=== PATIENT | female | born 2005 | race Caucasian/White ===

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

== ENCOUNTER → 2023-01-03 18:04 | Outpatient (CLI) | payer OTHER, SELFPAY | PROVIDERS: Visit Provider Nurse Practitioner Obstetrics & Gynecology | DX: Z34.91 Encounter for supervision of normal pregnancy, unspecified, first trimester (principal); Z3A.08 8 weeks gestation of pregnancy ==

== ENCOUNTER → 2023-01-10 12:49 | Outpatient (CLI) | payer OTHER, SELFPAY ==
--- NOTE | 2023-01-10 12:52 | US_ITS ---
PROCEDURE: US OB <= 14 WEEKS FETUS CLINICAL INDICATION: for dates COMPARISON: No exams were available for comparison FINDINGS: Transvaginal sonographic images of the pelvis were obtained. From her last menstrual period she is 9weeks 5days. An intrauterine gestational sac is present with a pole with a crown-rump length of 2.83cm correlating to gestational age of 9weeks 5days. heart tones are present with an FHR of 186bpm. Yolk sac is noted. The yolk sac measures 5.5mm. The right ovary is seen and appears normal. It measures 2.9 cm x 1.7 cm x 2.5 cm. Within the ovary is a dominant follicle measuring 14 mm. The left ovary is seen and appears normal. It measures 2.4 cm x 1.9 cm x 1.8 cm. There are several small follicles. There is no fluid in the cul-de-sac. IMPRESSION: 1. Viable intrauterine gestation with heart rate activity. 2. Size and dates are congruent with her last menstrual period. 3. Estimated due date will remain 08/10/2023. Dictated by: Woodrow Simpson MD 01/10/2023 14:05 Woodrow Simpson MD in [place] 01/10/2023 14:05
== END ==
PROVIDERS: Visit Provider Nurse Practitioner Obstetrics & Gynecology
DX: Z34.91 Encounter for supervision of normal pregnancy, unspecified, first trimester (principal); Z3A.08 8 weeks gestation of pregnancy
CPT/HCPCS: 76801

== ENCOUNTER → 2023-01-31 14:50 | Outpatient (CLI) | payer OTHER, SELFPAY ==
[2023-01-31 15:35] LABS: Basophils % 0.3 % (0.1-2.0); Eosinophils # 0.2 K/mm3 (0.0-0.4); Eosinophils % 1.4 % (0.1-12.0); Hematocrit 37.9 % (37.0-47.0); Hemoglobin 12.3 g/dL (12.2-16.2); Lymphocytes # 1.7 K/mm3 (0.7-4.5); Lymphocytes % 16.4 % (10-50); Mean Corpuscular HGB Conc 32.5 g/dL (31.8-35.4); Mean Corpuscular Hemoglobin 25.6 pg (27.0-31.2); Mean Corpuscular Volume 78.7 fl (81-99); Mean Platelet Volume 8.6 fl (7.4-10.4); Monocytes # 0.4 K/mm3 (0.1-1.0); Monocytes % 3.8 % (1.7-9.3); Neutrophils # 8.2 K/mm3 (1.8-7.8); Neutrophils % 78.1 % (37.0-80.0); Platelet Count 268 K/mm3 (142-424); Red Blood Count 4.81 M/mm3 (4.20-5.40); Red Cell Distribution Width 14.6 % (11.5-17.5); White Blood Count 10.5 K/mm3 (4.5-13.0)
[2023-02-02 10:12] LABS: HSV 2 IgG, Type Spec <0.91 index (0.00-0.90); Rubella Antibodies, IgG 1.87 index (Immune >0.99)
[2023-02-07 11:43] LABS: HIV Screen 4th Generation wRfx Non Reactive; Hepatitis B Surface Antigen Negative; Hepatitis C Antibody Non Reactive; Rapid Plasma Reagin Ab Titer Non Reactive
== END ==
PROVIDERS: Visit Provider Nurse Practitioner Obstetrics & Gynecology
DX: Z34.91 Encounter for supervision of normal pregnancy, unspecified, first trimester (principal); Z3A.12 12 weeks gestation of pregnancy
CPT/HCPCS: 36415; 85025; 86593; 86695; 86703; 86762; 86790; 86850; 87340; 87380; G0432

== ENCOUNTER 2023-02-11 16:49 | Emergency (ER) | payer OTHER, SELFPAY ==
[2023-02-11 17:05] VITALS: BP 122/81; PULSE 121; RESP 19; TEMP 37.1; O2SAT 99; BMI 33.6
--- NOTE | 2023-02-11 17:08 | EXP.UTC ---
Discharge Plan Disposition Patient Disposition: Home, Self-Care Condition: Good Prescriptions Prescriptions: New aopradjkxgguetr-kwxmdaktz-IK [Bromfed DM] 2-30-10 mg/5 mL Syrup 5 ml PO Q6H PRN (Reason: Cough) Qty: 240 0RF ondansetron 4 mg Tablet,Disintegrating 4 mg PO Q8H PRN (Reason: Nausea) Qty: 12 0RF No Action Classic 28 mg iron- 800 mcg tablet 1 tab PO DAILY Referrals Follow up/Referrals: Provider,Referral, MD [Primary Care Provider] - See instructions Activity Restrictions/Add. Instructions Additional Instructions/Restrictions: Drink plenty of fluids. Take tylenol or ibuprofen for pain or fever. Take the medications as directed. Follow up with your regular doctor. GO TO THE ER FOR ANY WORSENING SYMPTOMS Clinical Impressions Clinical Impression: COVID-19 Stand Alone Forms Stand Alone Forms: Work/School Release Instructions Patient Instructions: Coronavirus Disease 2019, Preventing the Spread of Coronavirus Discharge Instructions Discharge ED Provider: Harrison Perry [facility] General Stated complaint: covid test fever chills sore throat Time Seen by Provider: 02/11/23 17:07 History of Present Illness Provider Complaint: She states that for the past 2 days she has had body aches, chills, scratchy sore throat, dry cough, and malaise. Her currently has covid-19. Related Data Home Medications Medication Instructions Recorded Confirmed vits no.126-ferrous fum 1 tab PO DAILY 01/03/23 01/31/23 28 mg iron-folic acid 800 mcg tablet (Classic ) Previous Rx's Medication Instructions Recorded gpecachybxmivak-rgwdoforckelcze-IL 5 ml PO Q6H PRN Cough #240 mL 02/11/23 2 mg-30 mg-10 mg/5 mL oral syrup (Bromfed DM) ondansetron 4 mg disintegrating 4 mg PO Q8H PRN Nausea #12 tabs 02/11/23 tablet Allergies Allergy/AdvReac Type Severity Reaction Status Date / Time No Known Allergies Allergy Verified 01/31/23 14:18 [facility] Disclaimer: The information contained in this section may have been updated after the patient was seen, as this information can be updated by other users. Medical History No active medical problems Surgical History No significant past surgical history Family History Other Family history non-contributory Social History Smoking Status: Former smoker alcohol intake: never substance use type: denies use current occupational status: employed and student Travel in the last 8 weeks: None ROS Obtained: Yes All systems reviewed & no additional complaints except as documented Constitutional Constitutional: Reports chills and Reports fever(s) Eyes Eyes: Denies eye discharge ENT Ears, Nose, Mouth, and Throat: Reports as per HPI Cardiovascular Cardiovascular: Denies chest pain Respiratory Respiratory: Denies chest congestion and Reports cough Gastrointestinal Gastrointestingal: Reports nausea; Denies abdominal pain, constipation, cramping, diarrhea or vomiting Musculoskeletal Musculoskeletal: Denies arthralgias Integumentary/Breasts Skin/Breast: Denies rash Neurologic Neurologic: Denies paresthesias Physical Exam General General appearance: alert and in no apparent distress Head Head exam: atraumatic, normocephalic and normal inspection Eye Eye exam: Present normal appearance, PERRL and EOMI ENT ENT exam: Present normal exam, normal oropharynx, mucous membranes moist, TM's normal bilaterally and normal external ear exam Neck Neck exam: Present normal inspection, full ROM and trachea midline; Absent meningismus or lymphadenopathy Chest Chest inspection: Present normal inspection and symmetric chest wall rise; Absent tenderness Respiratory Respiratory exam: Present normal lung
[2023-02-11 17:31] VITALS: BP 122/81; PULSE 121; RESP 19; TEMP 37.1; O2SAT 99
== END 2023-02-11 17:37 | disposition home or self-care (01) ==
PROVIDERS: Emergency Provider Nurse Practitioner Family
DX: U07.1 COVID-19 (principal); R50.9 Fever, unspecified; R53.81 Other malaise; Z87.891 Personal history of nicotine dependence
CPT/HCPCS: 99204; 99212; G0463

== ENCOUNTER → 2023-02-22 23:13 | Outpatient (CLI) | payer OTHER, SELFPAY | PROVIDERS: PCP Obstetrics & Gynecology; Visit Provider Obstetrics & Gynecology | DX: Z34.92 Encounter for supervision of normal pregnancy, unspecified, second trimester (principal); Z3A.15 15 weeks gestation of pregnancy | CPT/HCPCS: 87086 ==

== ENCOUNTER → 2023-04-08 14:02 | Outpatient (CLI) | payer OTHER, SELFPAY ==
--- NOTE | 2023-04-08 14:06 | US_ITS ---
PROCEDURE: US OB /MATERNAL DETAIL CLINICAL INDICATION: anatomy COMPARISON: US US OB <= 14 WEEKS FETUS from 01/10/2023 FINDINGS: Transabdominal sonographic images of the pelvis were obtained. From her established due date she is 22 weeks 2 days. Single viable intrauterine gestation. Breech position. Placenta: Anteriorplacenta grade 1 . There is an average amount of fluid. The cervix appears satisfactory. Closed and measuring 3.4 cm in length. There are couple of views where the cervix appears shorter. Complete survey performed and was unremarkable on the submitted images as in PACS. No discrete anomalies identified on survey imaging by technologist. Active fetus. Three-vessel cord with satisfactory umbilical cord insertion. 4- chamber heart noted. Aortic arch, three-vessel view, RVOT, LVOT appear normal. Survey of brain & ventricles Unremarkable. Cerebellum, cisterna magna, thalamus, choroid plexus appear normal. Face and neck survey unremarkable. Profile, nasion, lips and nose appeared normal. Diaphragm and chest views unremarkable. Abdomen: Both kidneys noted and unremarkable. Stomach and bladder noted and satisfactory. Spine: Survey of the spine satisfactory with no anomalies identified nor imaged. Cervical, thoracic and lower spine appear normal. Both arms and legs noted. Amniotic Fluid: Adequate. Measurements: Average ultrasound age 22weeks 4days. Estimated due date by ultrasound age 0208/08/2023. Estimated weight 508g BPD = 22weeks 5days HC = 22weeks 2days AC = 22weeks 6days FL = 22weeks 2days Heart Rate = 147bpm Cerebellum = 22weeks Humerus = 22weeks 5days HC/AC is 1.13 FL/BPD is 0.7 FL/AC is 0.21 IMPRESSION: 1. Viable fetus in the breech presentation with an anterior placenta grade 1. 2. The fluid is within normal limits. 3. Anatomical scan appears normal. 4. biometry is consistent with the dates. Dictated by: Woodrow Simpson MD 04/08/2023 19:39 Woodrow Simpson MD in [place] 04/08/2023 19:39
== END ==
PROVIDERS: PCP Nurse Practitioner Obstetrics & Gynecology; Visit Provider Nurse Practitioner Obstetrics & Gynecology
DX: Z34.92 Encounter for supervision of normal pregnancy, unspecified, second trimester (principal); Z3A.22 22 weeks gestation of pregnancy
CPT/HCPCS: 76811

== ENCOUNTER → 2023-05-14 10:49 | Outpatient (CLI) | payer OTHER, SELFPAY ==
[2023-05-14 11:06] LABS: Basophils % 0.2 % (0.1-2.0); Eosinophils # 0.1 K/mm3 (0.0-0.4); Hematocrit 32.4 % (37.0-47.0); Hemoglobin 10.9 g/dL (12.2-16.2); Lymphocytes # 1.6 K/mm3 (0.7-4.5); Lymphocytes % 14.5 % (10-50); Mean Corpuscular HGB Conc 33.5 g/dL (31.8-35.4); Mean Corpuscular Hemoglobin 26.1 pg (27.0-31.2); Monocytes # 0.4 K/mm3 (0.1-1.0); Monocytes % 3.3 % (1.7-9.3); Neutrophils # 9.1 K/mm3 (1.8-7.8); Platelet Count 314 K/mm3 (142-424); Red Blood Count 4.15 M/mm3 (4.20-5.40); Red Cell Distribution Width 15.4 % (11.5-17.5); White Blood Count 11.2 K/mm3 (4.5-13.0)
[2023-05-14 11:17] LABS: Glucose,Fasting 89 mg/dl (74-100)
[2023-05-14 13:21] LABS: Glucose 1 Hour 95 mg/dL (74-100)
== END ==
PROVIDERS: Visit Provider Nurse Practitioner Obstetrics & Gynecology
DX: Z34.02 Encounter for supervision of normal first pregnancy, second trimester (principal); Z3A.23 23 weeks gestation of pregnancy
CPT/HCPCS: 36415; 82951; 85025

== ENCOUNTER 2023-07-13 08:45 | Outpatient (CLI) | payer OTHER, SELFPAY ==
[2023-07-13 09:10] LABS: Total Volume,Urine 1750 mL (600-1600)
[2023-07-13 09:14] LABS: Basophils % 0.3 % (0.1-2.0); Eosinophils # 0.1 K/mm3 (0.0-0.4); Eosinophils % 1.1 % (0.1-12.0); Hematocrit 32.7 % (37.0-47.0); Lymphocytes % 16.5 % (10-50); Mean Corpuscular HGB Conc 33.7 g/dL (31.8-35.4); Mean Corpuscular Hemoglobin 25.5 pg (27.0-31.2); Mean Corpuscular Volume 75.7 fl (81-99); Mean Platelet Volume 8.8 fl (7.4-10.4); Monocytes # 0.4 K/mm3 (0.1-1.0); Monocytes % 3.3 % (1.7-9.3); Neutrophils # 9.7 K/mm3 (1.8-7.8); Neutrophils % 78.7 % (37.0-80.0); Platelet Count 288 K/mm3 (142-424); Red Blood Count 4.32 M/mm3 (4.20-5.40); White Blood Count 12.4 K/mm3 (4.5-13.0)
[2023-07-13 09:17] LABS: Total Protein 24 Hour,Urine 193 mg/24 hr (40-90)
[2023-07-13 09:43] LABS: Alanine Aminotransferase 36 U/L (12-78); Albumin Level 3.4 g/dl (3.5-5.0); Albumin/Globulin Ratio 1.2 (1.1-1.8); Alkaline Phosphatase 132 U/L (38-126); Anion Gap 13.3 mEq/L (5-15); Aspartate Amino Transferase 32 U/L (14-36); Bilirubin,Total 0.4 mg/dl (0.2-1.3); Blood Urea Nitrogen 12 mg/dl (7-17); Calcium 9.2 mg/dl (8.4-10.2); Carbon Dioxide 18 mmol/L (22.0-30.0); Chloride 106 mmol/L (98-107); Estimated Glomerular Filt Rate 127 ml/min (>60); GFR (African American) 154 ML/MIN (>60); Globulin 2.9 g/dL (1.3-3.2); Glucose 87 mg/dl (74-100); Potassium 4.3 mmoL/L (3.5-5.1); Sodium 133 mmol/L (136-145); Total Protein,Serum 6.3 g/dl (6.3-8.2); Uric Acid 6.3 mg/dl (2.5-6.2)
[2023-07-16 15:22] LABS: Albumin, U 47.8 % (.); Alpha-1-Globulin, U 6.2 % (.); Alpha-2-Globulin, U 11.8 % (.); Beta Globulin, U 21.6 % (.); Gamma Globulin, U 12.6 % (.); M-Spike, % Not Observed % (Not Observed); Prot,24hr calculated 236 mg/24 hr (30-150); Protein,Total,Urine 13.5 mg/dL (Not Estab.)
[2023-07-17 12:39] LABS: PDF: SCANNED IMAGE
== END 2023-07-13 23:59 ==
LOC: LAB 08:46
PROVIDERS: Visit Provider Obstetrics & Gynecology
DX: Z3A.35 35 weeks gestation of pregnancy (principal); O26.893 Other specified pregnancy related conditions, third trimester; R03.0 Elevated blood-pressure reading, without diagnosis of hypertension
CPT/HCPCS: 36415; 80053; 84155; 84156; 84166; 84550; 85025

== ENCOUNTER 2023-07-15 21:16 | Outpatient (CLI) | payer OTHER, SELFPAY | END 2023-07-15 23:59 | LOC: LAB.DROPOF 21:17 | PROVIDERS: PCP Obstetrics & Gynecology; Visit Provider Obstetrics & Gynecology | DX: Z34.93 Encounter for supervision of normal pregnancy, unspecified, third trimester (principal); Z3A.36 36 weeks gestation of pregnancy | CPT/HCPCS: 86403 ==

== ENCOUNTER 2023-07-22 16:24 | Inpatient (IN) | payer OTHER, SELFPAY ==
[2023-07-22] VITALS (24 sets, daily range): BP systolic 111–158; BP diastolic 67–107; PULSE 100–109; RESP 16–18; TEMP 36.4–36.9; O2SAT 98–100; BMI 39.4
[2023-07-22 15:08] LABS: Basophils % 0.3 % (0.1-2.0); Eosinophils # 0.1 K/mm3 (0.0-0.4); Eosinophils % 0.9 % (0.1-12.0); Hematocrit 32.1 % (37.0-47.0); Hemoglobin 10.9 g/dL (12.2-16.2); Lymphocytes # 1.8 K/mm3 (0.7-4.5); Lymphocytes % 15.1 % (10-50); Mean Corpuscular HGB Conc 33.9 g/dL (31.8-35.4); Mean Corpuscular Hemoglobin 26.4 pg (27.0-31.2); Mean Platelet Volume 8.9 fl (7.4-10.4); Monocytes # 0.3 K/mm3 (0.1-1.0); Monocytes % 2.9 % (1.7-9.3); Neutrophils # 9.5 K/mm3 (1.8-7.8); Neutrophils % 80.8 % (37.0-80.0); Platelet Count 292 K/mm3 (142-424); Red Blood Count 4.11 M/mm3 (4.20-5.40); Red Cell Distribution Width 16.7 % (11.5-17.5); White Blood Count 11.8 K/mm3 (4.5-13.0)
[2023-07-22 15:22] LABS: Alanine Aminotransferase 40 U/L (12-78); Aspartate Amino Transferase 33 U/L (14-36); Blood Urea Nitrogen 8 mg/dl (7-17); Calcium 9.2 mg/dl (8.4-10.2); Carbon Dioxide 19 mmol/L (22.0-30.0); Chloride 107 mmol/L (98-107); Creatinine Clearance Estimated 287 mL/min (50-200); Estimated Glomerular Filt Rate 157 ml/min (>60); GFR (African American) 190 ML/MIN (>60); Glucose 83 mg/dl (74-100); Sodium 134 mmol/L (136-145); Uric Acid 6.4 mg/dl (2.5-6.2)
[2023-07-22 15:24] LABS: Activated Partial Thrombo Time 23.4 seconds (22.8-30.6); Fibrinogen 564 mg/dL (229.9-363.5); Prothrombin Time 9.8 seconds (10.1-12.5)
--- NOTE | 2023-07-22 16:36 | EXP.HP ---
History of Present Illness *Admission Date: 07/22/23 *Reason for visit:: induced hypertension *History of present illness: She is a 18-year-old 1 para 0 at 37 weeks gestational age with increased blood pressure in the office today. It was 160s over 115. She denies headache, scotomata or epigastric pain. Lab work was normal except for her uric acid which was 6.4. As result of that she is admitted for delivery. B+ blood Rubella immune Group B strep negative. [facility] Disclaimer: The information contained in this section may have been updated after the patient was seen, as this information can be updated by other users. Medical History 37 weeks gestation of Gestational hypertension Surgical History No significant past surgical history Family History Family history non-contributory Social History Smoking Status: Former smoker alcohol intake: never substance use type: denies use current occupational status: employed Travel in the last 8 weeks: None Review of Systems Review of Systems Review of systems:: pertinent systems reviewed and negative unless documented below Meds Home Medications and Allergies Home Medications Medication Instructions Recorded Confirmed Type vits no.126-ferrous fum 1 tab PO DAILY 01/03/23 07/22/23 History 28 mg iron-folic acid 800 mcg tablet (Classic ) ferrous sulfate 325 mg (65 mg 325 mg PO DAILY #30 tabs 05/14/23 07/22/23 Rx iron) tablet labetalol 100 mg tablet 100 mg PO BID #60 tabs 07/15/23 07/22/23 Rx New Prescriptions to Start Prescriptions: Allergies Allergy/AdvReac Type Severity Reaction Status Date / Time No Known Allergies Allergy Verified 07/22/23 13:51 Exam Data for Last 24 hours Vital signs and Labs for Last 24 Hours: Temp Pulse Resp BP Pulse Ox O2 Del Method 97.5 F L 105 H 16 154/98 H 100 Room Air 07/22/23 14:34 07/22/23 14:34 07/22/23 14:34 07/22/23 14:34 07/22/23 14:34 07/22/23 14:34 Laboratory Results - last 24 hr 07/22/23 14:50: WBC 11.8, RBC 4.11 L, Hgb 10.9 L, Hct 32.1 L, MCV 78.0 L, MCH 26.4 L, MCHC 33.9, RDW 16.7, Plt Count 292, MPV 8.9, Neut % (Auto) 80.8 H, Lymph % (Auto) 15.1, Dawson % (Auto) 2.9, Eos % (Auto) 0.9, Baso % (Auto) 0.3, Neut # (Auto) 9.5 H, Lymph # (Auto) 1.8, Dawson # (Auto) 0.3, Eos # (Auto) 0.1, Baso # (Auto) 0.0, PT 9.8 L, INR 0.90, APTT 23.4, Fibrinogen 564 H, Sodium 134 L, Potassium 4.0, Chloride 107, Carbon Dioxide 19 L, Anion Gap 12.0, BUN 8, Creatinine 0.50 L, Estimated Creat Clear 287, Estimated GFR 157, Est GFR ( Amer) 190, Glucose 83, Uric Acid 6.4 H, Calcium 9.2, AST 33, ALT 40, Blood Type B Positive, Antibody Screen Negative I & O for Last 24 hours: Intake & Output 07/20/23 07/21/23 07/22/23 07/23/23 11:59 11:59 11:59 11:59 Weight 223 lb Constitutional Constitutional: no acute distress *Routine HEENT Exam Head: Present normocephalic Eye: Present EOMI and PERRL ENT: Present mucous membranes moist *Routine Neck Exam Neck: Present supple; Absent lymphadenopathy *Routine Respiratory Exam Respiratory: Present CTA bilaterally *Routine Cardiovascular Exam Cardiovascular: Present RRR *Routine Abdominal Exam Abdominal: Present soft and normoactive bowel sounds; Absent tenderness *Routine Rectal Exam Rectal:: deferred *Routine Genitalia Exam Genitalia:: deferred *Routine Extremities Exam Extremities: Absent cyanosis, clubbing or edema *Routine Skin Exam Skin: Present warm; Absent rash *Routine Neurological Exam Neurological: Present alert and oriented X3 Assessment and Plan *Assessment and plan (1) Gestational hypertension: Status: Acute Qualifiers: Trimester: third trimester Qualified Code(s): O13.3 - Gestational [-induced] hypertension without significant proteinuria, third trimester Category: Medical Code(s): O13.9 - Gestational [-induced] hypertension without significant proteinuria, unspecified trimester (2) 37 weeks gestation of : Status: Acute Category: Medical Code(s): Z3A.37 - 37 weeks gestation of Plan She is admitted with -induced hypertension. We will start magnesium sulfate and plan at delivery. She will receive 1 dose of Cytotec tonight at 10:00 and then she will be started on IV oxytocin tomorrow morning. She is 2 cm dilated 70% effaced. We expect a vaginal delivery.
[2023-07-22] MEDS: MAGNESIUM SULFATE IN WATER 4 GM/50 ML PIGGYBACK IV (16:40)
[2023-07-22] MEDS: LABETALOL 100MG TABLET 200 MG PO (16:40)
[2023-07-22] MEDS: LACTATED RINGERS 1000ML 1,000 ML 75 ML IV (16:45)
[2023-07-22] MEDS: MAGNESIUM SULFATE IN WATER 20 GM/500 ML IV.SOLN IV (16:59)
[2023-07-22 18:37] LABS: Microscopic, Urine URINE MICROSCOPIC (MICROSCOPIC)
[2023-07-22 18:41] LABS: Appearance,Urine CLEAR (Clear); Bilirubin,Urine Negative (Negative); Blood, Urine Negative (Negative); Color,Urine YELLOW (Yellow); Glucose,Urine (UA) Negative (Negative); Ketones,Urine TRACE (Negative); Leukocyte Esterase,Urine Negative (Negative); Nitrate,Urine Negative (Negative); Protein,Urine 1+ (Negative); Specific Gravity, Urine 1.025 (1.005-1.030); Urobilinogen,Urine 0.2 EU/dl (0.2)
[2023-07-22 18:53] LABS: Amphetamine/Metha Screen,Urine Negative ng/ml (<1000); Barbiturates Screen,Urine Negative ng/ml (<200)
[2023-07-22 18:54] LABS: Benzodiazepines Screen,Urine Negative ng/ml (<200)
[2023-07-22 18:55] LABS: Cannabinoid Screen,Urine Negative ng/ml (<50)
[2023-07-22 18:56] LABS: Cocaine Screen,Urine Negative ng/ml (<300); Methadone Screen,Urine Negative ng/ml (<300)
[2023-07-22 18:57] LABS: Opiate Screen,Urine Negative ng/ml (<300)
[2023-07-22 18:58] LABS: Phencyclidine Screen,Urine Negative ng/ml (<25)
[2023-07-22 19:07] LABS: Bacteria,Urine 1+ /lpf
[2023-07-22] MEDS: miSOPROStol 100MCG TABLET 25 MCG PO (21:56)
[2023-07-23] VITALS (21 sets, daily range): BP systolic 112–156; BP diastolic 70–103; PULSE 78–115; RESP 16–20; TEMP 36.5–37.4; O2SAT 97–99
[2023-07-23] MEDS: ACETAMINOPHEN 325MG TAB 650 MG PO (01:31)
[2023-07-23] MEDS: MAGNESIUM SULFATE IN WATER 20 GM/500 ML IV.SOLN IV ×3 (03:16→23:33)
[2023-07-23] MEDS: OXYTOCIN/RINGERS LACTATE 30 UNITS/500 ML BAG IV (04:07)
[2023-07-23] MEDS: ONDANSETRON 4MG/2ML VIAL 4 MG IV (04:11)
[2023-07-23] MEDS: LACTATED RINGERS 1000ML 1,000 ML 500 ML IV (04:12)
[2023-07-23] MEDS: DEXTROSE 5%-LACTATED RINGERS 1,000 ML 50 ML IV ×2 (04:12→23:05)
[2023-07-23] MEDS: LABETALOL 100MG TABLET 200 MG PO ×2 (04:20→18:29)
[2023-07-23 07:20] LABS: Magnesium 5.6 mg/dl (1.6-2.3)
--- NOTE | 2023-07-23 07:34 | EXP.LABOR.NO ---
Labor Note Subjective: Date: 07/23/23 Time: 07:34 regular contraction Objective: NST:: Reactive Contractions:: every 2-3 minutes Cervical Dilation:: 3 Effacement:: 50% Station: -1 Membranes: artificially ruptured Comment:: I ruptured her membranes and there is clear fluid. Fetus: monitoring type:: External Assessment: Labor progressing?: Yes Cephalopelvic disproportion?: No Plan: Anesthesia for epidural?: Yes Continue to labor down?: Yes Plan for ?: No Continue to monitor?: Yes Start pushing?: No
[2023-07-23] MEDS: BUTORPHANOL TARTRATE 1 MG/ML VIAL IV (10:25)
--- NOTE | 2023-07-23 10:26 | HMH.PHAINT1 ---
Pharmacy Intervention Comments: MEDICATION RECONCILIATION COMPLETE USING LIST FROM MOST RECENT MD OFFICE VISIT AND EXTERNAL PHARMACY FILL HISTORY.
--- NOTE | 2023-07-23 11:11 | P.PNANES_ITS ---
[facility] Disclaimer: The information contained in this section may have been updated after the patient was seen, as this information can be updated by other users. Medical History 37 weeks gestation of Gestational hypertension Surgical History No significant past surgical history Family History Family history non-contributory Social History Smoking Status: Former smoker alcohol intake: never substance use type: denies use current occupational status: employed Travel in the last 8 weeks: None [facility] Anesthesia Checklist Patient Identification Patient Identification: Verbal (Name & ) Structural Data Admitted From: Inpatient Planned Operative Procedure/s: labor epidural Consent for Planned Operative Procedure(s) Verified: Yes Airway Assessment Mallampati Score:: Class I C-Spine Mobility Assessed: Yes TMJ Mobility Assessed: Yes Dentition: Good Dentition Neurological Assessment Level of Consciousness: Awake, Alert and Appropriate Anesthesia Plan Anesthesia Risk discussed: Yes Anesthesia Plan: Verified ASA Class: II Anesthesia Type: Epidural
--- NOTE | 2023-07-23 11:16 | EXP.LABOR.NO ---
Labor Note Subjective: Date: 07/23/23 Time: 10:40 regular contraction Objective: NST:: Reactive Contractions:: every 2-3 minutes Cervical Dilation:: 4-5 Effacement:: 90% Station: -1 Membranes: artificially ruptured Fetus: Monitoring?: Yes monitoring type:: Internal Comment:: I inserted an IUPC as well as a scalp clip. Assessment: Labor progressing?: Yes Cephalopelvic disproportion?: No Plan: Anesthesia for epidural?: Yes Continue to labor down?: Yes Plan for ?: No Continue to monitor?: Yes Start pushing?: No Comment:: She is doing well. She has progressed from 3 to 5 cm. Blood pressure slightly elevated but we are going to give her an epidural.
[2023-07-23] MEDS: LABETALOL 20MG/4ML SYRINGE 20 MG IV (12:30)
--- NOTE | 2023-07-23 12:37 | EXP.LABOR.NO ---
Labor Note Subjective: Date: 07/23/23 Time: 12:37 regular contraction Objective: NST:: Non-reactive (She is on magnesium sulfate. There is good lfeh-ma-wtjn variability but no accelerations.) Contractions:: every 2-3 minutes Cervical Dilation:: 5 Effacement:: 90% Station: -1 Membranes: artificially ruptured Fetus: Monitoring?: Yes monitoring type:: Internal Assessment: Labor progressing?: Yes Cephalopelvic disproportion?: No Plan: Anesthesia for epidural?: Yes Continue to labor down?: Yes Plan for ?: No Continue to monitor?: Yes Start pushing?: No Comment:: Her blood pressure is elevated I suspect as a result of pain. We were going to redose her. Will see how she does once the epidural is properly functioning. She is going to receive 20 mg of labetalol now.
--- NOTE | 2023-07-23 16:33 | EXP.DN ---
Delivery Note Delivery Date:: 07/23/23 Delivery Time:: 15:24 Anesthesia Type: Epidural Was labor medically induced?: Yes Induction method: per misoprostol protocol Infant delivered prior to 39 weeks?: Yes Justification for early elective delivery:: Pre-eclampsia Infant Gender: Male at 1 minute: 8 at 5 minutes: 9 LAC or MLE?: LAC Delivery Procedure:: She is a 18-year-old 1 para 0 at 37+ weeks gestational age. She was brought in on the evening of July 22, 2023 with increased blood pressure. Her blood pressures were in the 160s over 100 range. As result of that we elected to induce her labor. She received 1 dose of Cytotec overnight and then was started on IV oxytocin early this morning. She subsequently had her membranes ruptured and under labor epidural progressed to full dilation. She delivered spontaneously a liveborn male child at 3:34 PM in the afternoon of July 23, 2023. On delivery the head there was a nuchal cord x 3. After delivery of head the anterior shoulder then delivered followed by the rest the infant's body atraumatically. The baby was vigorous and cried spontaneously. The oropharynx and nasopharynx were bulb suction. We allowed the cord to continue to pulsate for approximately 1 minute. The cord was then doubly clamped and cut and the was placed on the mother's abdomen for further care. The nurses assigned Apgars of 8 at 1 minute and 9 at 5 minutes. We then obtained cord blood. She received IV oxytocin using gentle traction on the cord and countertraction the fundus placenta easily delivered 4 minutes after delivery. It had a normal three-vessel cord. She had a second-degree perineal laceration that was repaired with 3-0 Vicryl Rapide suture to the superficial tissues and 2-0 Vicryl sutures to the deep tissues of the perineum and perineal skin. Measured blood loss was 316 cc. She has B+ blood, she is rubella immune and was group B streptococcus negative. She plans to bottlefeed. Laceration:: vaginal Placental Delivery Description: Spontaneous
[2023-07-23] MEDS: OXYTOCIN/RINGERS LACTATE 30 UNITS/500 ML BAG 40 UNITS IV (18:15)
[2023-07-23] MEDS: IBUPROFEN 400 MG TABLET 800 MG PO (21:10)
[2023-07-23] MEDS: ACETAMINOPHEN 500MG TAB 1000 MG PO (21:10)
[2023-07-23 21:58] LABS: Magnesium 5.7 mg/dl (1.6-2.3)
[2023-07-24] MEDS: BENZOCAINE-MENTHOL SPRAY 56GM CAN TP (02:44)
[2023-07-24] MEDS: WITCH HAZEL 40 PADS/BOX 1 EACH TP ×2 (02:44→22:01)
[2023-07-24] MEDS: IBUPROFEN 400 MG TABLET 800 MG PO ×2 (04:50→14:00)
[2023-07-24] MEDS: ACETAMINOPHEN 500MG TAB 1000 MG PO ×2 (04:51→17:52)
[2023-07-24] MEDS: LABETALOL 100MG TABLET 200 MG PO ×2 (06:28→17:52)
[2023-07-24 06:39] LABS: Hemoglobin 9.2 g/dL (12.2-16.2)
[2023-07-24 06:48] LABS: Magnesium 6.8 mg/dl (1.6-2.3)
[2023-07-24 06:50] LABS: Hematocrit 27.6 % (37.0-47.0)
[2023-07-24 08:00] VITALS: BP 104/69; PULSE 88; RESP 18; TEMP 36.5; O2SAT 99
--- NOTE | 2023-07-24 08:37 | EXP.ACUTE.PN ---
Subjective *Date: 07/24/23 *Time: 08:37 Interval history: She is doing well this morning. She is 1 day from a vaginal delivery. She is still on magnesium sulfate at 2 g an hour. She denies any headache or scotomata. Her blood pressures this morning were normal. She is taking labetalol 200 mg every 12 hours. She is bottlefeeding. Her lochia is normal. Medical Exam Vital signs and Labs for Last 24 Hours: Vital Signs Temp Pulse Resp BP BP Pulse Ox O2 Del Method 07/23/23 21:00 99.3 F 103 H 18 135/91 H 99 Room Air 07/23/23 18:05 102 H 138/89 07/23/23 17:05 98.0 F 100 H 123/75 07/23/23 16:05 100 H 115/72 07/23/23 15:07 86 145/98 H 07/23/23 14:05 97.8 F 88 134/86 07/23/23 13:00 93 H 130/85 97 Room Air 07/23/23 12:00 97.8 F 93 H 153/100 H 07/23/23 11:04 90 16 144/99 H 98 Room Air 07/23/23 10:05 97.7 F 85 156/102 H 07/23/23 09:05 78 128/74 07/23/23 13:00 130/85 07/23/23 12:30 153/103 H Intake and Output 07/23/23 07/24/23 07/24/23 19:59 03:59 11:59 Output Total 400 / 400 Balance -400 / -400 Output: Output, Urine Amount 400 / 400 Laboratory Results - last 24 hr 07/22/23 14:50: Blood Type B Positive, Antibody Screen Negative, Crossmatch (AHG) See Detail 07/23/23 20:56: Magnesium 5.7 H 07/24/23 05:43: Hgb 9.2 L, Hct 27.6 L, Magnesium 6.8 H D I & O for Labs for Last 24 Hours: Intake & Output 07/21/23 07/22/23 07/23/23 07/24/23 11:59 11:59 11:59 11:59 Intake Total 908 / 908 Output Total 1350 / 1350 400 / 400 Balance -442 / -442 -400 / -400 Weight 223 lb Head: Present atraumatic and normocephalic ENT: Present normal exam Neck: Present normal inspection Respiratory: Present normal respiratory effort; Absent accessory muscle use Assessment and Plan *Assessment and plan (1) 37 weeks gestation of : Status: Acute Category: Medical Code(s): Z3A.37 - 37 weeks gestation of (2) Gestational hypertension: Status: Acute Qualifiers: Trimester: third trimester Qualified Code(s): O13.3 - Gestational [-induced] hypertension without significant proteinuria, third trimester Category: Medical Code(s): O13.9 - Gestational [-induced] hypertension without significant proteinuria, unspecified trimester (3) Normal delivery: Status: Acute Category: Medical Code(s): O80 - Encounter for full-term uncomplicated delivery Plan She is doing very well this morning. We will plan to stop her magnesium sulfate at 4:00 this afternoon. We will consider sending her home tomorrow or possibly in 48 hours. We will continue her on the labetalol 200 mg twice daily.
[2023-07-24] MEDS: MAGNESIUM SULFATE IN WATER 20 GM/500 ML IV.SOLN IV (10:57)
[2023-07-24 12:00] VITALS: BP 108/76; PULSE 84; RESP 18; O2SAT 95
[2023-07-24 16:00] VITALS: BP 136/86; PULSE 105; RESP 18; TEMP 36.8; O2SAT 99
[2023-07-24] MEDS: PRENATAL MULTIVITAMIN W/IRON 1 EACH PO (17:52)
[2023-07-24 20:03] VITALS: BP 131/84; PULSE 96; RESP 18; TEMP 36.7; O2SAT 99
[2023-07-24 23:56] VITALS: BP 133/76; PULSE 108; RESP 17; TEMP 37; O2SAT 98
[2023-07-25 03:59] VITALS: BP 136/83; PULSE 98; RESP 18; TEMP 37.2; O2SAT 98
[2023-07-25] MEDS: IBUPROFEN 400 MG TABLET 800 MG PO (04:07)
[2023-07-25] MEDS: ACETAMINOPHEN 500MG TAB 1000 MG PO (04:07)
[2023-07-25] MEDS: LABETALOL 100MG TABLET 200 MG PO (06:42)
[2023-07-25 08:20] VITALS: BP 137/89; PULSE 106; RESP 16; TEMP 36.8; O2SAT 98
[2023-07-25] MEDS: IRON SUCROSE COMPLEX 200 MG in 0.9 % SODIUM CHLORIDE 100 ML 220 MG IV (09:16)
--- NOTE | 2023-07-25 09:34 | P.DS_ITS ---
General Admission date:: 07/22/23 Discharge date: 07/25/23 HPI HPI HPI: PPD # 2 s/p Haley is feeling well. Pain controlled. Light lochia. Formula feeding. Voiding without difficulty and passing flatus. Tolerating regular diet. Denies fever/chills, chest pain and shortness of breath. No headaches, vision changes, lightheadedness/dizziness. Admits to lower extremity swelling. No calf pain. Ambulating well ad nanda. Hospital Course Hospital Course Hospital Course: Haley a 18-year-old 0 at 37 weeks 2 days with increased blood pressure in the office today. She had mild range BP a week a go and was started on Labetalol 100 mg BID. In the office 07/22/23 her BP was 160s over 112-120. She was sent to [facility] L&D triage for evaluation. She denied headache, scotomata and epigastric pain. Lab work was normal except for her uric acid which was 6.4. As result of that she is admitted for induction secondary to GHTN. She had good care. GBS negative. She underwent induction of labor with Cytotec and Pitocin . BP were severe range during induction and she was started on mag sulfate and Labetalol was increased to 200 mg PO q 12 hours. Mag level was therapeutic, 5.6-6.8. Mag sulfate was continued for 24 hours after delivery. BP within normal limits with Labetalol 200 mg q 12 hours after delivery. She had acute blood loss anemia superimposed on anemia of . She received venofer 200 mg IV x 1 dose. She did well . Pain controlled. Light lochia. Formula feeding. Voiding without difficulty and passing flatus. Tolerating regular diet. Denies fever/chills, chest pain and shortness of breath. No headaches, vision changes, lightheadedness/dizziness. Vital signs stable after mag sulfate discontinued. Afebrile. Heart regular rate and rhythm. Lungs clear to auscultation. Abdomen soft, nontender. She had +2 bilateral lower extremity edema. No calf tenderness to palpation. Ambulating well ad nanda. She was discharged home on PPD #2 with instructions to continue Labetalol 200 mg q 12 hours and follow-up in the office in 4 days for BP check or sooner if needed. Exam Data for Last 24 hours Vital signs and Labs for Last 24 Hours: Temp Pulse Resp BP Pulse Ox O2 Del Method 98.2 F 106 H 16 137/89 98 Room Air 07/25/23 08:20 07/25/23 08:20 07/25/23 08:20 07/25/23 08:20 07/25/23 08:20 07/25/23 08:20 I & O for Last 24 hours: Intake & Output 07/22/23 07/23/23 07/24/23 07/25/23 23:59 23:59 23:59 23:59 Intake Total 1608 / 1608 700 / 700 Output Total 600 / 600 1150 / 1150 1200 / 1200 Balance -600 / -600 458 / 458 -500 / -500 Weight 223 lb Constitutional Constitutional: no acute distress and cooperative *Routine HEENT Exam Head: Present normocephalic and atraumatic Eye: Absent conjunctivae pink ENT: Present mucous membranes moist *Routine Neck Exam Neck: Present full ROM *Routine Respiratory Exam Respiratory: Present CTA bilaterally and normal respiratory effort *Routine Cardiovascular Exam Cardiovascular: Present RRR *Routine Abdominal Exam Abdominal: Present soft; Absent tenderness or distended Comments: Uterine fundus firm and below umbilicus *Routine Rectal Exam Patient deferred: visual exam *Routine Exam Patient deferred: external exam *Routine Extremities Exam Extremities: Present edema (+2 bilateral lower extremity edema) and full ROM; Absent calf tenderness *Routine Neurological Exam Neurological: Present alert, moving all extremities and normal speech Routine Psychiatric Exam Psychiatric: Present normal affect and cooperative DS: Diagnosis Discharge Diagnosis (1) Normal delivery: Status: Acute Code(s): O80 - Encounter for full-term uncomplicated delivery (2) 37 weeks gestation of : Status: Acute Code(s): Z3A.37 - 37 weeks gestation of (3) Gestational hypertension: Status: Acute Code(s): O13.9 - Gestational [-induced] hypertension without significant proteinuria, unspecified trimester Qualifiers: Trimester: third trimester Qualified Code(s): O13.3 - Gestational [-induced] hypertension without significant proteinuria, third trimester (4) Acute blood loss anemia: Status: Acute Code(s): D62 - Acute posthemorrhagic anemia Meds Home Medications and Allergies Home Medications Medication Instructions Recorded Confirmed Type vits no.126-ferrous fum 1 tab PO DAILY Supplement 01/03/23 07/23/23 History 28 mg iron-folic acid 800 mcg tablet (Classic ) ibuprofen 800 mg tablet 800 mg PO Q8H PRN pain #20 tabs 07/25/23 Rx labetalol 100 mg tablet 200 mg PO Q12H #120 tabs 07/25/23 Rx New Prescriptions to Start Prescriptions: Maryann Gonzalez labetalol Maryann White Allergies Allergy/AdvReac Type Severity Reaction Status Date / Time No Known Allergies Allergy Verified 07/22/23 13:51 Discharge Plan Disposition Patient Disposition: Home, Self-Care Condition: Good Discharge Order Discharge Orders: Discharge Order (Routine); Ordered 07/25/23 Ordered By: Maryann White Follow up Plan Follow up with: Maryann White DO [Staff Physician] - 07/31/23 3:00 pm Prescriptions/Medication Reconciliation: New labetalol 100 mg Tablet 200 mg PO Q12H Qty: 120 0RF ibuprofen 800 mg tablet 800 mg PO Q8H PRN (Reason: pain) Qty: 20 0RF Continued Classic 28 mg iron- 800 mcg tablet 1 tab PO DAILY Discontinued ferrous sulfate 325 mg (65 mg iron) tablet 325 mg PO DAILY labetalol 100 mg tablet 100 mg PO BID Problem Reconciliation Problems Reviewed?: Yes Patient Discharge Instructions ACTIVITY: Limited activity DIET: continue same diet and regular diet Additional Instructions: Discharge: 1. Take 800 mg Ibuprofen every 8 hours as needed for pain. You can also take 500-1000 mg of Tylenol in between doses, every 6-8 hours. 2. Nothing in the vagina for 6 weeks - no intercourse, douching or tampons. No tub baths/hot tubs or swimming pools 3. Reasons to return to L&D or call On-Call doctor - fever (greater than 100.4) - heavy vaginal bleeding (soaking through 1 pad in less than 2 hours) - vaginal discharge (malodorous and/or purulent) - severe headaches not resolved by medication or rest and leg tenderness/edema 4. depression/blues - Normal to feel anxious/overwhelmed for first 2 weeks - Talk to your doctor if: severe anxiety, trouble bonding with baby, withdrawing from other family members, thoughts of harming yourself or others Maryann White DO [facility] [phone] Patient Instructions: Depression, Hemorrhage, DI for Labor and Delivery, Vaginal , DI for Pre-eclampsia, H Post Discharge Instructions Providers Primary Care Provider: Provider,Referral Admit Provider: Woodrow Simpson Attending Provider: Woodrow Simpson
== END 2023-07-25 11:32 | disposition home or self-care (01) | DRG 806 ==
LOC: OBOUT 16:25 → OB 16:25
PROVIDERS: Obstetrics & Gynecology; Admitting Provider Nurse Practitioner Obstetrics & Gynecology; Visit Provider Nurse Practitioner Obstetrics & Gynecology
DX: O13.4 Gestational [pregnancy-induced] hypertension without significant proteinuria, complicating childbirth (principal); D62 Acute posthemorrhagic anemia; Z37.0 Single live birth; Z3A.37 37 weeks gestation of pregnancy; O69.81X0 Labor and delivery complicated by cord around neck, without compression, not applicable or unspecified; O70.1 Second degree perineal laceration during delivery; O99.02 Anemia complicating childbirth; O99.03 Anemia complicating the puerperium
CPT/HCPCS: 59409; 36415; 59025; 80048; 80307; 81001; 83735; 84450; 84460; 84550; 85014; 85018; 85025; 85384; 85610; 85730; 86850; 94761; C1758; G0283; J0595; J1756; J2405

== ENCOUNTER 2024-04-28 16:34 | Outpatient (CLI) | payer SELFPAY ==
[2024-04-28 18:06] LABS: HCG,Quantitative 575 mIU/ml (0-5.42)
[2024-04-30 08:22] LABS: Progesterone 18.2 ng/mL (.)
== END 2024-04-28 23:59 | disposition home or self-care (01) ==
LOC: LAB 16:36
PROVIDERS: Visit Provider Obstetrics & Gynecology
DX: Z32.00 Encounter for pregnancy test, result unknown (principal)
CPT/HCPCS: 36415; 84144; 84702

== ENCOUNTER 2024-06-02 15:45 | Outpatient (CLI) | payer OTHER, SELFPAY ==
[2024-06-05 05:09] LABS: Neisseria gonorrhoeae, NAA Negative (Negative)
== END 2024-06-02 23:59 | disposition home or self-care (01) ==
LOC: LAB.DROPOF 06-03 15:45
PROVIDERS: PCP Obstetrics & Gynecology; Visit Provider Obstetrics & Gynecology
DX: Z34.81 Encounter for supervision of other normal pregnancy, first trimester (principal)
CPT/HCPCS: 87086; 87491; 87591

== ENCOUNTER 2024-06-29 07:09 | Outpatient (CLI) | payer OTHER, SELFPAY ==
[2024-06-29 07:26] LABS: Basophils # 0.1 K/mm3 (0-0.2); Basophils % 0.6 % (0.1-2.0); Eosinophils # 0.1 K/mm3 (0.0-0.4); Eosinophils % 1.5 % (0.1-12.0); Hematocrit 36.1 % (37.0-47.0); Hemoglobin 11.7 g/dL (12.2-16.2); Lymphocytes % 25.2 % (10-50); Mean Corpuscular HGB Conc 32.4 g/dL (31.8-35.4); Mean Corpuscular Hemoglobin 24.1 pg (27.0-31.2); Mean Corpuscular Volume 74.3 fl (81-99); Mean Platelet Volume 9.9 fl (7.4-10.4); Monocytes # 0.4 K/mm3 (0.1-1.0); Monocytes % 4.6 % (1.7-9.3); Neutrophils # 5.4 K/mm3 (1.8-7.8); Neutrophils % 67.8 % (37.0-80.0); Platelet Count 273 K/mm3 (142-424); Red Blood Count 4.86 M/mm3 (4.20-5.40); Red Cell Distribution Width 15.3 % (11.5-17.5)
[2024-06-29 11:24] LABS: Hepatitis C Ab Qual. W/ RFX NEGATIVE (Negative)
[2024-06-29 14:57] LABS: RPR W/RFX Titers Nonreactive (Nonreactive)
[2024-06-29 15:30] LABS: HIV Combo NEGATIVE (Negative)
[2024-06-30 05:08] LABS: Hepatitis B Surface Antigen Negative (Negative)
[2024-06-30 07:13] LABS: Rubella Antibodies, IgG 6.63 index (Immune >0.99)
== END 2024-06-29 23:59 | disposition home or self-care (01) ==
LOC: LAB 07:10
PROVIDERS: Family Medicine; Visit Provider Obstetrics & Gynecology
DX: Z34.81 Encounter for supervision of other normal pregnancy, first trimester (principal)
CPT/HCPCS: 36415; 85025; 86592; 86762; 86803; 86850; 87340; 87389

== ENCOUNTER 2024-08-20 13:03 | Outpatient (CLI) | payer OTHER, SELFPAY ==
--- NOTE | 2024-08-20 13:07 | US_ITS ---
PROCEDURE: US OB >= 14 WEEKS FETUS CLINICAL INDICATION: 20 week anatomy COMPARISON: There are no previous ultrasound examinations. FINDINGS: Transabdominal sonographic images of the pelvis were obtained. From her established due date she is 20 weeks 5 days. Single viable intrauterine gestation. Breech position. Placenta: Anteriorplacenta grade 1. There is an average amount of fluid. The cervix appears satisfactory. Closed and measuring 3.07 cm in length. Complete survey performed and was unremarkable on the submitted images as in PACS. No discrete anomalies identified on survey imaging by technologist. Active fetus. Three-vessel cord with satisfactory umbilical cord insertion. 4- chamber heart noted. Situs, aortic arch, LVOT, RVOT, three-vessel view appear normal. Survey of brain & ventricles Unremarkable. Cerebellum, thalamus, choroid plexus, cisterna magna appear normal. Face and neck survey unremarkable. Profile, nasion, lips and nose appeared normal. Diaphragm and chest views unremarkable. Abdomen: Both kidneys noted and unremarkable. Stomach and bladder noted and satisfactory. Spine: Survey of the spine satisfactory with no anomalies identified nor imaged. Cervical, thoracic, lower spine appear normal. Both arms and legs noted. Amniotic Fluid: Adequate. MVP 4.32 cm Measurements: Average ultrasound age 21weeks 2days. Estimated due date by ultrasound age 0712/29/2024. Estimated weight 422g BPD = 20weeks 5days HC = 21weeks 1day AC = 21weeks 4days FL = 21weeks 4days Growth Percentile= 82 Heart Rate = 149bpm Cerebellum = 20weeks 5days Humerus = 22weeks 4days HC/AC is 1.14 FL/BPD is 0.75 FL/AC is 0.22 IMPRESSION: 1. Viable fetus in the breech presentation with an anterior placenta grade 1. 2. The fluid is within normal limits with an MVP 34.32 cm. 3. Anatomical scan appears normal. 4. biometry is consistent with the dates. Dictated by: Woodrow Simpson MD 08/20/2024 14:01 Woodrow Simpson MD in OV 08/20/2024 14:01
== END 2024-08-20 23:59 | disposition home or self-care (01) ==
LOC: RAD 13:04
PROVIDERS: Visit Provider Obstetrics & Gynecology
DX: O09.292 Supervision of pregnancy with other poor reproductive or obstetric history, second trimester (principal); Z3A.20 20 weeks gestation of pregnancy
CPT/HCPCS: 76805

== ENCOUNTER 2024-10-10 09:16 | Outpatient (CLI) | payer OTHER, SELFPAY ==
[2024-10-10 09:37] LABS: Basophils % 0.2 % (0.1-2.0); Eosinophils # 0.1 Kmm3 (0.0-0.4); Eosinophils % 0.9 % (0.1-12.0); Hematocrit 32.2 % (37.0-47.0); Hemoglobin 10.2 g/dL (12.2-16.2); Lymphocytes # 1.6 K/mm3 (0.7-4.5); Lymphocytes % 18.3 % (10-50); Mean Corpuscular HGB Conc 31.7 g/dL (31.8-35.4); Mean Corpuscular Hemoglobin 24.2 pg (27.0-31.2); Mean Corpuscular Volume 76.3 fl (81-99); Mean Platelet Volume 9.8 fl (7.4-10.4); Monocytes # 0.4 K/mm3 (0.1-1.0); Monocytes % 4.6 % (1.7-9.3); Neutrophils # 6.5 K/mm3 (1.8-7.8); Neutrophils % 75.5 % (37.0-80.0); Nucleated Red Blood Cells # 0 10^3/uL; Nucleated Red Blood Cells % 0 %; Platelet Count 268 K/mm3 (142-424); Red Blood Count 4.22 M/mm3 (4.20-5.40); Red Cell Distribution Width 15.9 % (11.5-17.5); Red Cell Distribution Width-SD 43.2 fL; White Blood Count 8.6 K/mm3 (4.8-10.8)
[2024-10-10 10:59] LABS: Glucose 1 Hour 125 mg/dL (74-100)
[2024-10-10 15:37] LABS: RPR W/RFX Titers Nonreactive (Nonreactive)
== END 2024-10-10 23:59 | disposition home or self-care (01) ==
LOC: LAB 09:17
PROVIDERS: Visit Provider Obstetrics & Gynecology
DX: O09.293 Supervision of pregnancy with other poor reproductive or obstetric history, third trimester (principal); Z68.28 Body mass index [BMI] 28.0-28.9, adult
CPT/HCPCS: 36415; 82947; 85025; 86592

== ENCOUNTER 2024-10-16 16:05 | Outpatient (CLI) | payer OTHER, SELFPAY ==
[2024-10-16 16:27] LABS: Basophils % 0.4 % (0.1-2.0); Eosinophils # 0.1 Kmm3 (0.0-0.4); Eosinophils % 1.3 % (0.1-12.0); Hematocrit 31.4 % (37.0-47.0); Hemoglobin 10.1 g/dL (12.2-16.2); Lymphocytes % 24.1 % (10-50); Mean Corpuscular HGB Conc 32.2 g/dL (31.8-35.4); Mean Corpuscular Hemoglobin 24.2 pg (27.0-31.2); Mean Corpuscular Volume 75.1 fl (81-99); Mean Platelet Volume 9.3 fl (7.4-10.4); Monocytes # 0.4 K/mm3 (0.1-1.0); Neutrophils # 5.7 K/mm3 (1.8-7.8); Neutrophils % 68.7 % (37.0-80.0); Nucleated Red Blood Cells # 0 10^3/uL; Nucleated Red Blood Cells % 0 %; Platelet Count 247 K/mm3 (142-424); Red Blood Count 4.18 M/mm3 (4.20-5.40); Red Cell Distribution Width 15.8 % (11.5-17.5); Red Cell Distribution Width-SD 42.9 fL; White Blood Count 8.3 K/mm3 (4.8-10.8)
[2024-10-16 17:50] LABS: Prothrombin Time 10.3 seconds (10.1-12.5)
[2024-10-16 17:51] LABS: Activated Partial Thrombo Time 24.5 seconds (22.8-30.6); Fibrinogen 500 mg/dL (229.9-363.5); INR 0.91 (0.9-1.1)
[2024-10-16 17:55] LABS: Albumin Level 3.5 g/dl (3.5-5.0); Chloride 105 mmol/L (98-107); Sodium 134 mmol/L (136-145)
[2024-10-16 17:56] LABS: Potassium 3.8 mmoL/L (3.5-5.1)
[2024-10-16 17:58] LABS: Alanine Aminotransferase 99 U/L (12-78); Aspartate Amino Transferase 60 U/L (14-36); Bilirubin,Total 0.4 mg/dl (0.2-1.3); Blood Urea Nitrogen 9 mg/dl (7-17); Estimated Glomerular Filt Rate 106 ml/min (>60); GFR (African American) 128 ML/MIN (>60)
[2024-10-16 17:59] LABS: Albumin/Globulin Ratio 1.1 (1.1-1.8); Alkaline Phosphatase 119 U/L (38-126); Calcium 8.7 mg/dl (8.4-10.2); Globulin 3.1 g/dL (1.3-3.2); Glucose 96 mg/dl (74-100); Total Protein,Serum 6.6 g/dl (6.3-8.2)
[2024-10-16 18:21] LABS: Anion Gap 8.8 mEq/L (5-15); Carbon Dioxide 24 mmol/L (22.0-30.0); Uric Acid 5.7 mg/dl (2.5-6.2)
[2024-10-16 18:30] LABS: Creatinine,Urine Random 166 mg/dL (Not Estab.); Total Protein 24 Hour,Urine 42 mg/24 hr (40-90); Total Volume,Urine 300 mL (600-1600)
== END 2024-10-16 23:59 | disposition home or self-care (01) ==
LOC: LAB 16:06
PROVIDERS: Visit Provider Obstetrics & Gynecology
DX: O09.292 Supervision of pregnancy with other poor reproductive or obstetric history, second trimester (principal); Z3A.29 29 weeks gestation of pregnancy
CPT/HCPCS: 36415; 80053; 82570; 84155; 84550; 85025; 85384; 85610; 85730

== ENCOUNTER 2024-11-18 08:28 | Outpatient (CLI) | payer OTHER, SELFPAY ==
[2024-11-18 09:27] LABS: Basophils # 0.1 K/mm3 (0-0.2); Basophils % 0.6 % (0.1-2.0); Eosinophils # 0.1 Kmm3 (0.0-0.4); Eosinophils % 1.2 % (0.1-12.0); Hemoglobin 9.4 g/dL (12.2-16.2); Immature Granulocytes # 0.11 10^3uL; Lymphocytes # 4.7 K/mm3 (0.7-4.5); Mean Corpuscular HGB Conc 30.3 g/dL (31.8-35.4); Mean Corpuscular Hemoglobin 22.5 pg (27.0-31.2); Mean Corpuscular Volume 74.2 fl (81-99); Mean Platelet Volume 9.7 fl (7.4-10.4); Monocytes # 0.6 K/mm3 (0.1-1.0); Monocytes % 4.9 % (1.7-9.3); Neutrophils # 5.9 K/mm3 (1.8-7.8); Neutrophils % 51.3 % (37.0-80.0); Nucleated Red Blood Cells # 0.02 10^3/uL; Nucleated Red Blood Cells % 0.2 %; Platelet Count 289 K/mm3 (142-424); Red Blood Count 4.18 M/mm3 (4.20-5.40); Red Cell Distribution Width 16.4 % (11.5-17.5); Red Cell Distribution Width-SD 43.8 fL; White Blood Count 11.5 K/mm3 (4.8-10.8)
[2024-11-18 09:46] LABS: Albumin Level 3.5 g/dl (3.5-5.0); Chloride 109 mmol/L (98-107); Potassium 4.5 mmoL/L (3.5-5.1); Sodium 135 mmol/L (136-145)
[2024-11-18 09:49] LABS: Alanine Aminotransferase 221 U/L (12-78); Alkaline Phosphatase 155 U/L (38-126); Anion Gap 11.5 mEq/L (5-15); Aspartate Amino Transferase 110 U/L (14-36); Bilirubin,Total 0.6 mg/dl (0.2-1.3); Blood Urea Nitrogen 13 mg/dl (7-17); Calcium 8.8 mg/dl (8.4-10.2); Carbon Dioxide 19 mmol/L (22.0-30.0); Estimated Glomerular Filt Rate 126 ml/min (>60); GFR (African American) 153 ML/MIN (>60); Globulin 3.4 g/dL (1.3-3.2); Glucose 100 mg/dl (74-100); Total Protein,Serum 6.9 g/dl (6.3-8.2)
[2024-11-20 01:08] LABS: Bile Acids 8.1 umol/L (0.0-10.0)
== END 2024-11-18 23:59 | disposition home or self-care (01) ==
LOC: LAB 08:28
PROVIDERS: Visit Provider Obstetrics & Gynecology
DX: O09.299 Supervision of pregnancy with other poor reproductive or obstetric history, unspecified trimester (principal); Z3A.00 Weeks of gestation of pregnancy not specified
CPT/HCPCS: 36415; 80053; 82239; 85025

== ENCOUNTER 2024-11-25 15:30 | Outpatient (CLI) | payer OTHER, SELFPAY ==
[2024-11-25 17:02] LABS: Alanine Aminotransferase 203 U/L (12-78); Albumin Level 3.4 g/dl (3.5-5.0); Albumin/Globulin Ratio 1.1 (1.1-1.8); Alkaline Phosphatase 125 U/L (38-126); Aspartate Amino Transferase 89 U/L (14-36); Bilirubin,Total 0.7 mg/dl (0.2-1.3); Blood Urea Nitrogen 9 mg/dl (7-17); Calcium 8.9 mg/dl (8.4-10.2); Carbon Dioxide 21 mmol/L (22.0-30.0); Chloride 106 mmol/L (98-107); Estimated Glomerular Filt Rate 156 ml/min (>60); GFR (African American) 188 ML/MIN (>60); Globulin 3.1 g/dL (1.3-3.2); Glucose 82 mg/dl (74-100); Sodium 132 mmol/L (136-145); Total Protein,Serum 6.5 g/dl (6.3-8.2)
== END 2024-11-25 23:59 | disposition home or self-care (01) ==
LOC: LAB 15:30
PROVIDERS: Visit Provider Obstetrics & Gynecology
DX: L29.9 Pruritus, unspecified (principal)
CPT/HCPCS: 36415; 80053

== ENCOUNTER 2024-11-30 16:20 | Outpatient (CLI) | payer OTHER, SELFPAY ==
[2024-11-30] VITALS (8 sets, daily range): BP systolic 133–150; BP diastolic 86–104; PULSE 116; RESP 24; TEMP 36.6; O2SAT 97; BMI 38.9
[2024-11-30 17:04] LABS: Basophils % 0.4 % (0.1-2.0); Eosinophils # 0.1 Kmm3 (0.0-0.4); Eosinophils % 1.1 % (0.1-12.0); Hematocrit 29.8 % (37.0-47.0); Hemoglobin 9.2 g/dL (12.2-16.2); Immature Granulocytes # 0.04 10^3uL; Immature Granulocytes % 0.4 %; Lymphocytes # 3.2 K/mm3 (0.7-4.5); Lymphocytes % 32.7 % (10-50); Mean Corpuscular HGB Conc 30.9 g/dL (31.8-35.4); Mean Corpuscular Hemoglobin 22.3 pg (27.0-31.2); Mean Corpuscular Volume 72.3 fl (81-99); Monocytes # 0.4 K/mm3 (0.1-1.0); Monocytes % 4.1 % (1.7-9.3); Neutrophils # 5.9 K/mm3 (1.8-7.8); Neutrophils % 61.3 % (37.0-80.0); Nucleated Red Blood Cells # 0 10^3/uL; Nucleated Red Blood Cells % 0 %; Platelet Count 300 K/mm3 (142-424); Red Blood Count 4.12 M/mm3 (4.20-5.40); Red Cell Distribution Width 16.8 % (11.5-17.5); Red Cell Distribution Width-SD 43.7 fL; White Blood Count 9.7 K/mm3 (4.8-10.8)
[2024-11-30] MEDS: LABETALOL 100MG TABLET 50 MG PO (17:30)
[2024-11-30 17:44] LABS: Activated Partial Thrombo Time 22.1 seconds (22.8-30.6); Albumin Level 3.6 g/dl (3.5-5.0); Chloride 108 mmol/L (98-107); Fibrinogen 495 mg/dL (229.9-363.5); INR 0.92 (0.9-1.1); Potassium 3.9 mmoL/L (3.5-5.1); Prothrombin Time 10.3 seconds (10.1-12.5); Sodium 135 mmol/L (136-145)
[2024-11-30 17:47] LABS: Alanine Aminotransferase 148 U/L (12-78); Albumin/Globulin Ratio 1.1 (1.1-1.8); Alkaline Phosphatase 165 U/L (38-126); Anion Gap 10.9 mEq/L (5-15); Aspartate Amino Transferase 62 U/L (14-36); Bilirubin,Total 0.7 mg/dl (0.2-1.3); Blood Urea Nitrogen 5 mg/dl (7-17); Carbon Dioxide 20 mmol/L (22.0-30.0); Creatinine Clearance Estimated 280 mL/min (50-200); Estimated Glomerular Filt Rate 156 ml/min (>60); GFR (African American) 188 ML/MIN (>60); Globulin 3.3 g/dL (1.3-3.2); Glucose 91 mg/dl (74-100); Total Protein,Serum 6.9 g/dl (6.3-8.2)
[2024-11-30 17:55] LABS: Creatinine,Urine Random 98 mg/dL (Not Estab.)
[2024-11-30 18:16] LABS: Uric Acid 6.4 mg/dl (2.5-6.2)
== END 2024-11-30 18:24 | disposition home or self-care (01) ==
LOC: OBOUT 16:22 → OB 16:23
PROVIDERS: Visit Provider Obstetrics & Gynecology
DX: O13.3 Gestational [pregnancy-induced] hypertension without significant proteinuria, third trimester (principal); O09.293 Supervision of pregnancy with other poor reproductive or obstetric history, third trimester; Z3A.35 35 weeks gestation of pregnancy
CPT/HCPCS: 59025; 80053; 82570; 84156; 84550; 85025; 85384; 85610; 85730; 86403; 99212; G0463

== ENCOUNTER 2024-12-12 05:07 | Inpatient (IN) | payer OTHER, SELFPAY ==
[2024-12-12 05:08] VITALS: BMI 39.1
[2024-12-12 05:12] VITALS: BP 151/90; PULSE 122; RESP 18; TEMP 36.7; O2SAT 98; BMI 39.1
[2024-12-12 06:05] LABS: Basophils % 0.4 % (0.1-2.0); Eosinophils # 0.1 Kmm3 (0.0-0.4); Eosinophils % 1.2 % (0.1-12.0); Hemoglobin 8.7 g/dL (12.2-16.2); Immature Granulocytes # 0.03 10^3uL; Immature Granulocytes % 0.4 %; Lymphocytes # 3.1 K/mm3 (0.7-4.5); Lymphocytes % 38.1 % (10-50); Mean Corpuscular HGB Conc 31.1 g/dL (31.8-35.4); Mean Corpuscular Hemoglobin 22.1 pg (27.0-31.2); Mean Corpuscular Volume 71.2 fl (81-99); Mean Platelet Volume 9.7 fl (7.4-10.4); Monocytes # 0.3 K/mm3 (0.1-1.0); Monocytes % 3.9 % (1.7-9.3); Neutrophils # 4.6 K/mm3 (1.8-7.8); Nucleated Red Blood Cells # 0 10^3/uL; Nucleated Red Blood Cells % 0 %; Platelet Count 254 K/mm3 (142-424); Red Blood Count 3.93 M/mm3 (4.20-5.40); Red Cell Distribution Width 16.9 % (11.5-17.5); Red Cell Distribution Width-SD 43.5 fL; White Blood Count 8.2 K/mm3 (4.8-10.8)
[2024-12-12] MEDS: OXYTOCIN/RINGERS LACTATE 30 UNITS/500 ML BAG IV (06:14)
[2024-12-12] MEDS: DEXTROSE 5%-LACTATED RINGERS 1,000 ML 125 ML IV (06:15)
--- NOTE | 2024-12-12 07:48 | EXP.OB.APHP ---
OB - H&P: HPI Antepartum History of Present Illness Chief complaint: Scheduled induction of labor History of present illness: Mrs Haley Castro is a 19 yo at 37w0d who presents to [facility] L&D for scheduled induction of labor secondary to GHTN on Labetalol 100 mg PO BID. She denies headaches, vision changes and RUQ/epigastric pain. History of preeclampsia in prior . She has had good care. Baby is active. No leakage of fluid or vaginal bleeding. History of Present Criteria for establishing EDC:: based on 1st trimester US only care: good care Ultrasounds: normal mid trimester US Obstetrical complications: gestational hypertension Medical complications: none Labs Blood type: B (+) positive Rubella: immune RPR/VDRL: nonreactive GBS status: negative HBsAG: negative [facility] Disclaimer: The information contained in this section may have been updated after the patient was seen, as this information can be updated by other users. Medical History Gestational hypertension Elevated blood pressure affecting in third trimester, antepartum Transaminitis Itching Pruritus of palm Skin problem History of pre-eclampsia in prior , currently Maternal obesity affecting , antepartum Acute blood loss anemia Surgical History No significant past surgical history Family History Other Family history non-contributory Social History Smoking Status: Former smoker alcohol intake: never substance use type: denies use current occupational status: employed Travel in the last 8 weeks?: None Have you lived/traveled outside [place] in past 30 days?: No Contact w/someone who lives/traveled outside US past 30 days?: No Exposure to someone with infectious disease in past 14 days?: No Do you have a fever (greater than 100.4 F or 38 C)?: No Have you tested positive for COVID-19?: No Exposed to someone with COVID-19 in past 14 days?: No Do you have a sore throat?: No Do you have a cough?: No Do you have any weakness?: No Do you have any diarrhea?: No Are you experiencing any unusual bleeding?: No Do you have any muscle aches/pain?: No Do you have any abdominal pain?: No Are you experiencing loss of taste or smell?: No Other Medical History Have you received the Flu Vaccine for this season: Yes Have you received the Pneumonia Vaccine: No Review of Systems Review of Systems Review of systems:: pertinent systems reviewed and negative unless documented below Meds Home Medications and Allergies Home Medications ?Medication ?Instructions ?Recorded ?Confirmed ?Type labetalol 100 mg tablet 100 mg PO BID HTN 12/10/24 12/10/24 History New Prescriptions to Start Prescriptions: Allergies Allergy/AdvReac Type Severity Reaction Status Date / Time No Known Allergies Allergy Verified 12/10/24 13:03 OB - H&P: Exam Physical Exam Vital signs: Temp Pulse Resp BP Pulse Ox O2 Del Method 98.1 F 122 H 18 151/90 H 98 Room Air 12/12/24 05:12 12/12/24 05:12 12/12/24 05:12 12/12/24 05:12 12/12/24 05:12 12/12/24 05:12 Constitutional no acute distress and cooperative Routine HEENT Exam Head: Present normocephalic and atraumatic Eye: Absent conjunctivae pink ENT: Present mucous membranes moist Routine Neck Exam Present full ROM Routine Respiratory Exam Present CTA bilaterally and normal respiratory effort Routine Cardiovascular Exam Present RRR Routine Abdominal Exam Present soft (Gravid); Absent tenderness Routine Rectal Exam Patient deferred: visual exam Routine Exam External: Present normal urethra appearance; Absent erythema, swelling, tenderness, vulvar erythema or vulvar tenderness Routine Extremities Exam Present full ROM; Absent edema or calf tenderness Routine Neurological Exam Present alert, moving all extremities and normal speech Routine Psychiatric Exam Present normal affect and cooperative Detailed Labor and Delivery Exam Dilation (cm): 3 Effacement (%): 70 Cervix position: mid station: -2 Consistency: soft Membranes: artificially ruptured Amniotic fluid: clear Baseline heart rate: 140 monitor accelerations: Present monitor decelerations: None jail variability: Moderate (11-25) Contraction frequency (min): 4 OB - Results Labs Labs: Short CBC 12/12/24 Range/Units 05:40 WBC 8.2 (4.8-10.8) K/mm3 Hgb 8.7 L (12.2-16.2) g/dL Hct 28.0 L (37.0-47.0) % Plt Count 254 (142-424) K/mm3 OB - A/P Antepartum (1) Gestational hypertension: Status: Acute (2) Maternal obesity affecting , antepartum: Status: Acute (3) History of pre-eclampsia in prior , currently : Status: Acute (4) Transaminitis: Status: Acute Additional Plan Additional Information:: Admit to [facility] for scheduled induction of labor secondary to GHTN GBS negative Induction of labor with Pitocin and amniotomy Close monitoring Anticipate vaginal delivery
[2024-12-12] MEDS: LACTATED RINGERS 1000ML 1,000 ML 999 ML IV (08:40)
--- NOTE | 2024-12-12 09:26 | HMH.PHAINT1 ---
Pharmacy Intervention Comments: MEDICATION RECONCILIATION COMPLETE USING RECENT OB OFFICE VISIT NOTE.
--- NOTE | 2024-12-12 09:51 | P.PNANES_ITS ---
[facility] Disclaimer: The information contained in this section may have been updated after the patient was seen, as this information can be updated by other users. Medical History Gestational hypertension Elevated blood pressure affecting in third trimester, antepartum Transaminitis Itching Pruritus of palm Skin problem History of pre-eclampsia in prior , currently Maternal obesity affecting , antepartum Acute blood loss anemia Surgical History No significant past surgical history Family History Other Family history non-contributory Social History Smoking Status: Former smoker alcohol intake: never substance use type: denies use current occupational status: employed Travel in the last 8 weeks?: None Have you lived/traveled outside US in past 30 days?: No Contact w/someone who lives/traveled outside US past 30 days?: No Exposure to someone with infectious disease in past 14 days?: No Do you have a fever (greater than 100.4 F or 38 C)?: No Have you tested positive for COVID-19?: No Exposed to someone with COVID-19 in past 14 days?: No Do you have a sore throat?: No Do you have a cough?: No Do you have any weakness?: No Do you have any diarrhea?: No Are you experiencing any unusual bleeding?: No Do you have any muscle aches/pain?: No Do you have any abdominal pain?: No Are you experiencing loss of taste or smell?: No [facility] Anesthesia Checklist Patient Identification Patient Identification: Arm Band Structural Data Admitted From: Inpatient Planned Operative Procedure/s: Labor Epidural Consent for Planned Operative Procedure(s) Verified: Yes Verified Documents: Surgical Consent and History and Physical Additional verifications Anesthesia Reactions: No Neurological Assessment Level of Consciousness: Awake, Alert and Appropriate Anesthesia Plan Anesthesia Risk discussed: Yes Anesthesia Plan: Verified ASA Class: II Anesthesia Type: Epidural
[2024-12-12 11:15] LABS: Microscopic, Urine URINE MICROSCOPIC (MICROSCOPIC)
[2024-12-12 11:18] LABS: Appearance,Urine CLEAR (Clear); Bilirubin,Urine Negative (Negative); Blood, Urine Negative (Negative); Color,Urine YELLOW (Yellow); Glucose,Urine (UA) Negative (Negative); Ketones,Urine Negative (Negative); Leukocyte Esterase,Urine Negative (Negative); Nitrate,Urine Negative (Negative); Protein,Urine Negative (Negative); Specific Gravity, Urine 1.015 (1.005-1.030)
[2024-12-12 11:24] LABS: Amorphous Sediment,Urine Trace /lpf; Bacteria,Urine Trace /lpf
[2024-12-12 11:38] LABS: RPR W/RFX Titers Nonreactive (Nonreactive)
[2024-12-12] MEDS: OXYTOCIN/RINGERS LACTATE 30 UNITS/500 ML BAG 999 UNITS IV (14:23)
[2024-12-12] MEDS: OXYTOCIN/RINGERS LACTATE 30 UNITS/500 ML BAG 40 UNITS IV (14:40)
--- NOTE | 2024-12-12 14:52 | EXP.DN ---
Delivery Note Delivery Date:: 12/12/24 Delivery Time:: 14:17 Anesthesia Type: Epidural Was labor medically induced?: Yes Induction method: per pitocin protocol Gestational age (weeks): 37 delivered prior to 39 weeks?: Yes Justification for early elective delivery:: Gestational Hypertension Gender: Male at 1 minute: 9 at 5 minutes: 9 LAC or MLE?: LAC Delivery Procedure:: Mom complete with epidural. Pushed for approximately 7 minutes. Head delivered spontaneously over intact perineum in OA position. No nuchal cord. Anterior shoulder delivered with gentle downward pressure. Posterior shoulder and remainder of body delivered spontaneously. Baby placed on maternal abdomen, mouth and nares bulb suctioned, warmed/dried and stimulated. Delayed cord clamping was performed for 60 seconds. Cord was clamped and cut by father of baby. Cord blood was obtained. Placenta delivered spontaneously and intact. Placenta will be sent to pathology for review. Right labial lacerations, left labial lacerations and second degree perineal laceration repaired with 3-0 Vicryl. Hemostasis noted. Mom and baby were skin to skin and doing well after delivery. Live male baby (baby's name is ) APGARs 9 (1 min), 9 (5 min) EBL 250 mL Laceration:: labial Placental Delivery Description: Spontaneous
[2024-12-12] MEDS: IBUPROFEN 400 MG TABLET 800 MG PO (16:46)
[2024-12-12] MEDS: ACETAMINOPHEN 500MG TAB 1000 MG PO (16:46)
[2024-12-12] MEDS: PRENATAL MULTIVITAMIN W/IRON 1 EACH PO (17:42)
[2024-12-12 20:23] VITALS: BP 134/85; PULSE 103; RESP 18; TEMP 36.4; O2SAT 98
[2024-12-12] MEDS: WITCH HAZEL 40 PADS/BOX 1 EACH TP (22:50)
[2024-12-12] MEDS: BENZOCAINE-MENTHOL SPRAY 56GM CAN TP (22:50)
[2024-12-13 04:30] VITALS: BP 137/85; PULSE 107; RESP 17; TEMP 36.7; O2SAT 100
[2024-12-13 07:15] LABS: Basophils % 0.3 % (0.1-2.0); Eosinophils # 0.2 Kmm3 (0.0-0.4); Eosinophils % 1.7 % (0.1-12.0); Hematocrit 28.6 % (37.0-47.0); Hemoglobin 8.7 g/dL (12.2-16.2); Immature Granulocytes # 0.05 10^3uL; Immature Granulocytes % 0.5 %; Lymphocytes # 2.8 K/mm3 (0.7-4.5); Lymphocytes % 26.1 % (10-50); Mean Corpuscular HGB Conc 30.4 g/dL (31.8-35.4); Mean Corpuscular Volume 72.4 fl (81-99); Mean Platelet Volume 10.3 fl (7.4-10.4); Monocytes # 0.5 K/mm3 (0.1-1.0); Monocytes % 4.7 % (1.7-9.3); Neutrophils # 7.2 K/mm3 (1.8-7.8); Neutrophils % 66.7 % (37.0-80.0); Nucleated Red Blood Cells # 0 10^3/uL; Nucleated Red Blood Cells % 0 %; Platelet Count 241 K/mm3 (142-424); Red Blood Count 3.95 M/mm3 (4.20-5.40); Red Cell Distribution Width 17.1 % (11.5-17.5); White Blood Count 10.8 K/mm3 (4.8-10.8)
[2024-12-13] MEDS: IBUPROFEN 400 MG TABLET 800 MG PO (09:00)
[2024-12-13] MEDS: SENNA 8.6MG TABLET 8.6 MG PO (09:00)
[2024-12-13] MEDS: ACETAMINOPHEN 500MG TAB 1000 MG PO (09:00)
--- NOTE | 2024-12-13 10:38 | EXP.ACUTE.PN ---
Subjective *Date: 12/13/24 *Time: 10:38 Interval history: PPD # 1 s/p Feeling well. Pain controlled. Breast feeding. Lochia is appropriate. Voiding without difficulty and passing flatus. Tolerating regular diet. Denies fever/chills, chest pain and shortness of breath. No headaches, vision changes, lightheadedness/dizziness. No lower extremity swelling. Ambulating well ad nanda. Medical Exam Vital signs and Labs for Last 24 Hours: Vital Signs Temp Pulse Resp BP Pulse Ox O2 Del Method 12/13/24 04:30 98.1 F 107 H 17 137/85 100 Room Air 12/12/24 20:23 97.6 F 103 H 18 134/85 98 Room Air Laboratory Results - last 24 hr 12/12/24 05:40: RPR w/Rflx to Titer Nonreactive 12/12/24 10:55: Urine Color Yellow, Urine Appearance Clear, Urine pH 8.0, Ur Specific [place] 1.015, Urine Protein Negative, Urine Glucose (UA) Negative, Urine Ketones Negative, Urine Blood Negative, Urine Nitrate Negative, Urine Bilirubin Negative, Urine Urobilinogen 1.0, Ur Leukocyte Esterase Negative, Urine RBC None, Urine WBC None, Ur Squamous Epith Cells None, Amorphous Sediment Trace, Urine Bacteria Trace 12/13/24 06:45: WBC 10.8 D, RBC 3.95 L, Hgb 8.7 L, Hct 28.6 L, MCV 72.4 L, MCH 22.0 L, MCHC 30.4 L, RDW 17.1, Plt Count 241, MPV 10.3, Neut % (Auto) 66.7, Lymph % (Auto) 26.1, Citrus % (Auto) 4.7, Eos % (Auto) 1.7, Baso % (Auto) 0.3, Neut # (Auto) 7.2, Lymph # (Auto) 2.8, Citrus # (Auto) 0.5, Eos # (Auto) 0.2, Baso # (Auto) 0.0, Hemoglobin A1c 6.0 I & O for Labs for Last 24 Hours: Intake & Output 12/10/24 12/11/24 12/12/24 12/13/24 23:59 23:59 23:59 23:59 Weight 221 lb Head: Present atraumatic and normocephalic ENT: Present normal exam and mucous membranes moist Neck: Present normal inspection and full ROM Respiratory: Present CTA bilaterally and normal respiratory effort Cardiac: Present Reg Rate and Rhythm GI: Present soft; Absent tenderness Comments:: Uterine fundus firm and below umbilicus Rectal (female): Present deferred (female): Present deferred Extremities: Present normal inspection and full ROM; Absent edema or calf tenderness Neuro: Present alert, awake and moves all extremities Assessment and Plan *Assessment and plan (1) Status post normal vaginal delivery: Status: Acute Category: Medical (2) Gestational hypertension: Status: Acute Qualifiers: Trimester: third trimester Qualified Code(s): O13.3 - Gestational [-induced] hypertension without significant proteinuria, third trimester Category: Medical Code(s): O13.9 - Gestational [-induced] hypertension without significant proteinuria, unspecified trimester (3) Maternal obesity affecting , antepartum: Status: Acute Qualifiers: Obesity type affecting : unspecified obesity Qualified Code(s): O99.210 - Obesity complicating , unspecified trimester Category: Medical Code(s): O99.210 - Obesity complicating , unspecified trimester (4) History of pre-eclampsia in prior , currently : Status: Acute Category: Medical Code(s): O09.299 - Supervision of with other poor reproductive or obstetric history, unspecified trimester (5) Transaminitis: Status: Acute Category: Medical Code(s): R74.01 - Elevation of levels of liver transaminase levels (6) Anemia during , delivered, current hospitalization: Status: Acute Category: Medical Code(s): O99.02 - Anemia complicating childbirth Plan Continue routine care Encouraged increased ambulation Repeat CMP to check LFTs Hold Labetalol and continue to monitor BP. She is asymptomatic. BP without medication has been 130's/80's since delivery AM Hgb 8.7 (8.7 on admission 12/12/24) - Venofer 200 mg IV x 1 dose ordered Plan d/c home tomorrow, PPD # 2
[2024-12-13 10:48] LABS: Albumin Level 3.3 g/dl (3.5-5.0); Chloride 103 mmol/L (98-107); Potassium 3.9 mmoL/L (3.5-5.1); Sodium 134 mmol/L (136-145)
[2024-12-13 10:50] LABS: Blood Urea Nitrogen 6 mg/dl (7-17)
[2024-12-13 10:51] LABS: Alanine Aminotransferase 63 U/L (12-78); Alkaline Phosphatase 138 U/L (38-126); Anion Gap 10.9 mEq/L (5-15); Aspartate Amino Transferase 52 U/L (14-36); Bilirubin,Total 0.6 mg/dl (0.2-1.3); Calcium 8.8 mg/dl (8.4-10.2); Carbon Dioxide 24 mmol/L (22.0-30.0); Creatinine Clearance Estimated 282 mL/min (50-200); Estimated Glomerular Filt Rate 156 ml/min (>60); GFR (African American) 188 ML/MIN (>60); Globulin 3.2 g/dL (1.3-3.2); Glucose 87 mg/dl (74-100); Total Protein,Serum 6.5 g/dl (6.3-8.2)
[2024-12-13] MEDS: IRON SUCROSE COMPLEX 200 MG in 0.9 % SODIUM CHLORIDE 100 ML 220 MG IV (11:55)
[2024-12-13] MEDS: PRENATAL MULTIVITAMIN W/IRON 1 EACH PO (16:23)
[2024-12-13 16:25] VITALS: BP 142/95; PULSE 118; RESP 15; TEMP 36.6; O2SAT 98
[2024-12-13 21:06] VITALS: BP 116/70; PULSE 126; RESP 18; TEMP 37; O2SAT 99
[2024-12-14] MEDS: IBUPROFEN 400 MG TABLET 800 MG PO (01:26)
[2024-12-14] MEDS: SENNA 8.6MG TABLET 8.6 MG PO (01:27)
[2024-12-14 05:55] VITALS: BP 129/81; PULSE 110; RESP 18; TEMP 36.7; O2SAT 99
--- NOTE | 2024-12-14 08:43 | P.DS_ITS ---
General Admission date:: 12/12/24 Discharge date: 12/14/24 HPI HPI HPI: PPD # 2 s/p Feeling well. Pain controlled. Breast feeding. Lochia is light. Voiding without difficulty and passing flatus. Tolerating regular diet. Denies fever/chills, chest pain and shortness of breath. No headaches, vision changes, lightheadedness/dizziness. No lower extremity swelling. Ambulating well ad nanda. Hospital Course Hospital Course Hospital Course: Mrs Haley Castro is a 19 yo at 37w0d who presents to [facility] L[facility]D for scheduled induction of labor secondary to GHTN on Labetalol 100 mg PO BID. She denies headaches, vision changes and RUQ/epigastric pain. History of preeclampsia in prior . She has had good care. Baby is active. No leakage of fluid or vaginal bleeding. GBS negative. She underwent induction of labor with Pitocin and amniotomy. She had a normal spontaneous vaginal delivery on 12/12/24 at 1417. She delivered a live male baby, Yves, weighing 8 lbs 0 oz. APGARs 9 (1 min), 9 (5 min) EBL 250 mL. She did well . Pain controlled. Breast feeding. Light lochia. Voiding without difficulty and passing flatus. Tolerating regular diet. Denies fever/chills, chest pain and shortness of breath. No headaches, dizziness/lightheadedness or vision changes. Vital signs stable, afebrile. Heart regular rate and rhythm. Lungs clear to auscultation. Abdomen soft, nontender. No lower extremity swelling. Ambulating well ad nanda. Normal hospital course. She was discharged to home on PPD # 2 with instructions to follow-up in the office in 3 days for BP check and 2 weeks for visit or sooner if needed. Exam Data for Last 24 hours Vital signs and Labs for Last 24 Hours: Temp Pulse Resp BP Pulse Ox O2 Del Method 98.1 F 110 H 18 129/81 99 Room Air 12/14/24 05:55 12/14/24 05:55 12/14/24 05:55 12/14/24 05:55 12/14/24 05:55 12/14/24 05:55 Laboratory Results - last 24 hr 12/13/24 06:45: Sodium 134 L, Potassium 3.9, Chloride 103, Carbon Dioxide 24, Anion Gap 10.9, BUN 6 L, Creatinine 0.50 L, Estimated Creat Clear 282, Estimated GFR 156, Est GFR ( Amer) 188, Glucose 87, Hemoglobin A1c 6.0, Calcium 8.8, Total Bilirubin 0.6, AST 52 H, ALT 63, Alkaline Phosphatase 138 H, Total Protein 6.5, Albumin 3.3 L, Globulin 3.2, Albumin/Globulin Ratio 1.0 L I & O for Last 24 hours: Intake & Output 12/11/24 12/12/24 12/13/24 12/14/24 23:59 23:59 23:59 23:59 Weight 221 lb Constitutional Constitutional: no acute distress and cooperative *Routine HEENT Exam Head: Present normocephalic and atraumatic Eye: Absent conjunctivae pink ENT: Present mucous membranes moist *Routine Neck Exam Neck: Present full ROM *Routine Respiratory Exam Respiratory: Present CTA bilaterally and normal respiratory effort *Routine Cardiovascular Exam Cardiovascular: Present RRR *Routine Abdominal Exam Abdominal: Present soft; Absent tenderness or distended *Routine Rectal Exam Patient deferred: visual exam *Routine Exam Patient deferred: external exam *Routine Extremities Exam Extremities: Present full ROM; Absent edema or calf tenderness *Routine Neurological Exam Neurological: Present alert, moving all extremities and normal speech Routine Psychiatric Exam Psychiatric: Present normal affect and cooperative Results Data Completed and Pending Labs on day of discharge: Labs from last 24 hours 12/13/24 06:45 Sodium 134 L Potassium 3.9 Chloride 103 Carbon Dioxide 24 Anion Gap 10.9 BUN 6 L Creatinine 0.50 L Estimated Creat Clear 282 Estimated GFR 156 Est GFR ( Amer) 188 Glucose 87 Hemoglobin A1c 6.0 Calcium 8.8 Total Bilirubin 0.6 AST 52 H ALT 63 Alkaline Phosphatase 138 H Total Protein 6.5 Albumin 3.3 L Globulin 3.2 Albumin/Globulin Ratio 1.0 L DS: Diagnosis Discharge Diagnosis (1) Status post normal vaginal delivery: Status: Acute (2) Gestational hypertension: Status: Acute Code(s): O13.9 - Gestational [-induced] hypertension without significant proteinuria, unspecified trimester Qualifiers: Trimester: third trimester Qualified Code(s): O13.3 - Gestational [-induced] hypertension without significant proteinuria, third trimester (3) Maternal obesity affecting , antepartum: Status: Acute Code(s): O99.210 - Obesity complicating , unspecified trimester Qualifiers: Obesity type affecting : unspecified obesity Qualified Code(s): O99.210 - Obesity complicating , unspecified trimester (4) History of pre-eclampsia in prior , currently : Status: Acute Code(s): O09.299 - Supervision of with other poor reproductive or obstetric history, unspecified trimester (5) Transaminitis: Status: Acute Code(s): R74.01 - Elevation of levels of liver transaminase levels Problem details: improving (6) Anemia during , delivered, current hospitalization: Status: Acute Code(s): O99.02 - Anemia complicating childbirth Meds Home Medications and Allergies New Prescriptions to Start Prescriptions: Allergies Allergy/AdvReac Type Severity Reaction Status Date / Time No Known Allergies Allergy Verified 12/10/24 13:03 Discharge Plan Disposition Patient Disposition: Home, Self-Care Condition: Good Discharge Order Discharge Orders: Discharge Order (Routine); Ordered 12/14/24 Ordered By: Maryann White Follow up Plan Follow up with: Maryann White DO [Staff Physician, [employer]] - 2 weeks Referral Note: Prescriptions/Medication Reconciliation: Discontinued labetalol 100 mg tablet 100 mg PO BID Problem Reconciliation Problems Reviewed?: Yes Patient Discharge Instructions ACTIVITY: Continue current activity and Limited activity DIET: continue same diet and regular diet Additional Instructions: Discharge: 1. Take 800 mg Ibuprofen every 8 hours as needed for pain. You can also take 500-1000 mg of Tylenol in between doses, every 6-8 hours. 2. Nothing in the vagina for 6 weeks - no intercourse, douching or tampons. No tub baths/hot tubs or swimming pools 3. Reasons to return to L&D or call On-Call doctor - fever (greater than 100.4) - heavy vaginal bleeding (soaking through 1 pad in less than 2 hours) - vaginal discharge (malodorous and/or purulent) - severe headaches not resolved by medication or rest and leg tenderness/edema 4. depression/blues - Normal to feel anxious/overwhelmed for first 2 weeks - Talk to your doctor if: severe anxiety, trouble bonding with baby, withdrawing from other family members, thoughts of harming yourself or others Maryann Canan, DO [facility] [phone] Patient Instructions: Depression, Hemorrhage, DI for Labor and Delivery, Vaginal , DI for Pre-eclampsia, [facility] Post Discharge Instructions Print Language: American Providers Primary Care Provider: Provider,Referral Admit Provider: Maryann White Attending Provider: Maryann White
[2024-12-14] MEDS: WITCH HAZEL 40 PADS/BOX 1 EACH TP (09:19)
[2024-12-14 13:02] VITALS: TEMP 37.2
== END 2024-12-14 15:10 | disposition home or self-care (01) | DRG 807 ==
PROVIDERS: Admitting Provider Obstetrics & Gynecology; Visit Provider Obstetrics & Gynecology
DX: O13.4 Gestational [pregnancy-induced] hypertension without significant proteinuria, complicating childbirth (principal); Z37.0 Single live birth; O99.214 Obesity complicating childbirth; O70.1 Second degree perineal laceration during delivery; O99.02 Anemia complicating childbirth; Z3A.37 37 weeks gestation of pregnancy; Z87.891 Personal history of nicotine dependence; Z79.899 Other long term (current) drug therapy
CPT/HCPCS: 36415; 51702; 59025; 80053; 81001; 83036; 85025; 86592; 86850; 94761; J0665; J1756; J2795; J3010; J7120; J7121

== ENCOUNTER 2024-12-28 16:03 | Outpatient (CLI) | payer OTHER, SELFPAY ==
--- NOTE | 2024-12-28 16:30 | CT_ITS ---
PROCEDURE INFORMATION: Exam: CTA Chest With Contrast Exam date and time: 12/28/2024 5:01 PM Age: 19 years old Clinical indication: Shortness of breath; Additional info: SOB, fatigue TECHNIQUE: Imaging protocol: Computed tomographic angiography of the chest with contrast. Exam focused on the arteries. 3D rendering (Not supervised by radiologist): MIP and/or 3D reconstructed images were created by the technologist. Radiation optimization: All CT scans at this facility use at least one of these dose optimization techniques: automated exposure control; mA and/or kV adjustment per patient size (includes targeted exams where dose is matched to clinical indication); or iterative reconstruction. Contrast material: ISOVUE 370; Contrast volume: 85 ml; Contrast route: INTRAVENOUS (IV); COMPARISON: No relevant prior studies available. FINDINGS: Pulmonary arteries: No evidence of pulmonary embolus to the segmental level. Aorta: No aneurysm of the aorta. No dissection of the aorta. Lungs: Unremarkable. No consolidation. No masses. Pleural spaces: Unremarkable. No pneumothorax. No pleural effusion. Heart: Unremarkable. No cardiomegaly. No pericardial effusion. Lymph nodes: Unremarkable. No enlarged lymph nodes. Bones/joints: Unremarkable. No acute fracture. Soft tissues: Unremarkable. IMPRESSION: 1. No evidence of pulmonary embolus to the segmental level. 2. No aneurysm of the aorta. 3. No dissection of the aorta.
[2024-12-28 16:55] LABS: Hematocrit 35.0 % (37.0-47.0); Hemoglobin 10.2 g/dL (12.2-16.2); Immature Granulocytes % 0.3 %; Mean Corpuscular HGB Conc 29.1 g/dL (31.8-35.4); Mean Corpuscular Hemoglobin 21.5 pg (27.0-31.2); Mean Corpuscular Volume 73.8 fl (81-99); Nucleated Red Blood Cells % 0 %; Platelet Count 291 K/mm3 (142-424); Red Blood Count 4.74 M/mm3 (4.20-5.40); Red Cell Distribution Width-SD 47.9 fL; White Blood Count 11.7 K/mm3 (4.8-10.8)
[2024-12-28] MEDS: IOPAMIDOL-370 (76%);100ML BOTTLE 85 ML IV (17:11)
[2024-12-28] MEDS: 0.9 % SODIUM CHLORIDE 50 ML VIAL IV (17:11)
[2024-12-28] MEDS: SODIUM CHLORIDE 0.9% 10ML SYR (RAD ONLY) 10 ML IV (17:11)
[2024-12-28 17:21] LABS: Alanine Aminotransferase 24 U/L (12-78); Albumin Level 4.4 g/dl (3.5-5.0); Alkaline Phosphatase 86 U/L (38-126); Anion Gap 18.9 mEq/L (5-15); Aspartate Amino Transferase 25 U/L (14-36); Bilirubin,Direct 0.2 mg/dl (0.0-0.4); Bilirubin,Indirect 1.0 mg/dL (0.0-0.9); Bilirubin,Total 1.2 mg/dl (0.2-1.3); Bilirubin,Unconjugated 1.0 mg/dL (0.0-1.1); Blood Urea Nitrogen 11 mg/dl (7-17); Calcium 9.4 mg/dl (8.4-10.2); Carbon Dioxide 23 mmol/L (22.0-30.0); Chloride 100 mmol/L (98-107); Cholesterol 208 mg/dl (140-200); Creatinine,Serum 0.80 mg/dl (0.52-1.04); Estimated Glomerular Filt Rate 91 ml/min (>60); GFR (African American) 110 ML/MIN (>60); Glucose 102 mg/dl (74-100); HDL Cholesterol 49 mg/dl (40-60); Magnesium 1.7 mg/dl (1.6-2.3); Potassium 3.9 mmoL/L (3.5-5.1); Sodium 138 mmol/L (136-145); Total Protein,Serum 7.6 g/dl (6.3-8.2); Triglycerides 133 mg/dl (30-150)
[2024-12-28 17:43] LABS: Free T4 (Free Thyroxine) 1.08 ng/dl (0.78-2.19)
[2024-12-28 17:52] LABS: Thyroid Stimulating Hormone 0.48 uIU/mL (0.465-4.68)
== END 2024-12-28 23:59 | disposition home or self-care (01) ==
PROVIDERS: PCP Internal Medicine Adolescent Medicine; Visit Provider Nurse Practitioner
DX: R06.02 Shortness of breath (principal); R53.83 Other fatigue
CPT/HCPCS: 36415; 71275; 80048; 80061; 80076; 83735; 84439; 84443; 85025; 93270; Q9967

== ENCOUNTER 2025-01-15 13:03 | Outpatient (CLI) | payer OTHER, SELFPAY ==
--- NOTE | 2025-01-15 | CA_ITS ---
APPROVED REPORT EXAM: Comprehensive 2D, Doppler, and color-flow Echocardiogram Printing Gray Cloth Tender: SINA Wood, RVS Ht: 5 ft 3 in Wt: 190lbs BSA: 1.89 BP: 107/64 mmHg Indications: SOB, Fatigue, Tachycardia, Anemia, Echo Enhancing Agent Indication: Rule Out Septal Defect Agent(s) / Amount(s) Used: Agitated Saline 20 cc Comments: No lright to left shunt demonstrated with three phase bubble study. 2D Dimensions Left Atrium 2.89 cm LA Volume 52.60 mL LA Volume Index [id number] mL/m2 (M/F) 16-34 M-Mode Dimensions RVDd 2.22 cm (0.9-2.6) LA Diam 2.67 cm (1.9-4.0) LVDd 5.01 cm (3.5-5.7) LVDs 3.59 cm (3.5-5.7) IVSd 0.72 cm (0.6-1.1) PWd 0.78 cm (0.6-1.1) EF (Teich) 51.10% EPSs 0.78 cm FS 26.10% EDV (Teich) 110.70 mL ESV (Teich) 54.10 mL Aortic Valve ILEANA Index 1.02 cm2/m2 AoV Peak Eduardo. 117.0 (50-130 cm/s) AO Peak GR. 5.50 mmHg AO Mean GR. 2.70 (<5 mmHg) AO VTI 18.7 (18-25 cm) ILEANA (VTI) 1.97 (2.5-4.5 cm2) Tricuspid Valve TR P. Velocity 217.00 cm/s RAP Estimate 10.00 mmHg RVSP 28.80 mmHg Left Ventricle The left ventricle is normal size. Left ventricular systolic function is mildly reduced. There is normal left ventricular wall thickness. There is mild global hypokinesis present. The left ventricular diastolic function is normal. LVEF is 45-50% Right Ventricle The right ventricle is normal size. The right ventricular systolic function is normal. Atria The left atrium size is normal. The right atrium size is normal. There is no color Doppler evidence of interatrial shunt. Agitated saline administration demonstrates no evidence of interatrial shunt. Aortic Valve The aortic valve opens well. There is no hemodynamically significant aortic valvular stenosis. No aortic regurgitation is present. Mitral Valve The mitral valve is normal in structure. No evidence of mitral valve stenosis. Mild mitral regurgitation is present. Tricuspid Valve The tricuspid valve leaflets are thin and pliable. Mild tricuspid regurgitation. RVSP is normal. Pulmonic Valve The pulmonary valve is grossly normal in structure. Trace pulmonic valve regurgitation is present. Great Vessels The aortic root is normal in size. IVC is normal in size and collapses >50% with inspiration. Pericardium There is no pericardial effusion. Other Information Study Quality: Technically Difficult Conclusion Technically difficult study due to difficulty visualizing the LV endocardial borders. Mildly reduced LV systolic function (LVEF 45-50%). Mild MR, mild TR. There is no color Doppler evidence of interatrial shunt. Agitated saline administration demonstrates no evidence of interatrial shunt. In the setting of mildly reduced LV systolic function, further evaluation with limited TTE + ultrasound enhancing agent to better visualize the LV endocardial borders (and better evaluate the LVEF) is suggested. Electronically signed by : Carolyn Barnhart MD 01/16/2025 12:12:28
== END 2025-01-15 23:59 | disposition home or self-care (01) ==
LOC: RT 13:03
PROVIDERS: PCP Internal Medicine Adolescent Medicine; Visit Provider Nurse Practitioner
DX: I08.1 Rheumatic disorders of both mitral and tricuspid valves (principal); D64.9 Anemia, unspecified; R93.1 Abnormal findings on diagnostic imaging of heart and coronary circulation; R00.0 Tachycardia, unspecified
CPT/HCPCS: 93306

== ENCOUNTER 2025-02-05 11:05 | Outpatient (CLI) | payer OTHER, SELFPAY ==
--- NOTE | 2025-02-05 11:15 | CA_ITS ---
APPROVED REPORT EXAM: Limited 2D Echocardiogram with contrast Outreach Liaison: SINA Wood, RVS Ht: 5 ft 3 in Wt: 195lbs BSA: 1.91 BP: 133/88 mmHg Indications: Grvida-2, borderline reduction in LVEF, Anemia, Tachycardia Echo Enhancing Agent Indication: Endocardial border delineation Agent(s) / Amount(s) Used: Definity cc 2D Dimensions EF AP4 62.70 % GL Strain -18.0 % M-Mode Dimensions RVDd 1.64 cm (0.9-2.6) LVDd 4.73 cm (3.5-5.7) LVDs 3.45 cm (3.5-5.7) IVSd 1.07 cm (0.6-1.1) PWd 1.04 cm (0.6-1.1) EF (Teich) 53.00% FS 27.20% EDV (Teich) 104.40 mL ESV (Teich) 49.10 mL Other Information Study Quality: Fair Conclusion This is a limited TTE to evaluate for LV systolic function. Limited windows are obtained. Ultrasound enhancing agent is administered to better delineate the LV endocardial borders. The left ventricle is normal in size. There is normal LV wall thickness. There is low-normal global LV systolic function. No regional wall motion abnormalities are noted. LVEF is 50%. Ultrasound enhancing agent demonstrates no evidence of LV thrombus. Electronically signed by : Carolyn Barnhart MD 02/05/2025 19:17:58
[2025-02-05] MEDS: DEFINITY US ECHO CONTRAST 2ML INJ 2 MG IV (11:42)
== END 2025-02-05 23:59 | disposition home or self-care (01) ==
LOC: RT 11:05
PROVIDERS: PCP Internal Medicine Adolescent Medicine; Visit Provider Nurse Practitioner
DX: I51.7 Cardiomegaly (principal); D64.9 Anemia, unspecified; R00.0 Tachycardia, unspecified
CPT/HCPCS: 93308; Q9957